=== PATIENT | female | born 1990 | race Caucasian/White ===

== ENCOUNTER 2022-11-20 16:13 | Emergency (ER) | payer OTHER, SELFPAY ==
[2022-11-20 16:53] VITALS: BP 121/80; PULSE 88; RESP 16; TEMP 36.7; O2SAT 98; BMI 44.6
[2022-11-20] MEDS: Ibuprofen 600 MG TABLET PO (20:31)
--- NOTE | 2022-11-20 23:11 | ED.BACK ---
HPI - Back Pain/Injury General Chief Complaint: Back Pain/Injury Stated Complaint: severe back and leg pain Time Seen by Provider: 11/20/22 23:10 Source: patient Mode of arrival: ambulatory Limitations: no limitations History of Present Illness HPI Narrative: This is a 32-year-old female history of sciatica presenting to the emergency department with left lower back pain in the lumbar region that radiates down the left leg just above the left knee, patient tells me that she has a known history of sciatica, this feels like her typical sciatica however the pain is intolerable. Patient reports that pain is worse with movement better at rest. She tells me she was recently placed on a Medrol pack which she recently completed 1.5 weeks ago with little to no relief. She got a referral from her primary care provider to see a senior education specialist due to recurrent episodes of this. PCP did xrays which were normal. Patient denies IV drug abuse, fevers, chills, numbness, tingling, fevers, chills, saddle paresthesias, urine/bowel incontinence/retention, weakness, chest pain, shortness of breath, nausea, vomitin, abd pain. Denies blunt trauma to back. Feels like her typical sciatica however not improving. Has taken ibuprofen and Tylenol a home. (amulatory into room) Related Data Previous Rx's Medication Instructions Recorded lidocaine 5 % topical patch 1 patch topical DAILY PRN pain #15 11/20/22 ea morphine 15 mg immediate release 15 mg PO BID PRN pain #8 tabs 11/20/22 tablet Allergies Allergy/AdvReac Type Severity Reaction Status Date / Time No Known Allergies Allergy Verified 11/20/22 16:54 Review of Systems Review of Systems: Constitutional : No Weight loss, No Fever, No Chills, ENT/Mouth : No Hearing loss, No Ear Pain, No Nasal Congestion, No Sinus Pain, No Hoarseness, No sore throat, No Rhinorrhea, No Swallowing Difficulty Cardiovascular : No Chest Pain, No SOB Respiratory : No Cough, No Dyspnea Gastrointestinal : No Nausea, No Vomiting, No Diarrhea, No abdominal Pain, No Hematochezia, No Melena Genitourinary : No Dysuria, No Urinary Frequency, No Hematuria, No Urinary Incontinence, Musculoskeletal : positive back pain Skin : No Skin Lesions, No rash Neuro : No Weakness, No Numbness, No Paresthesias, no loss of bowel or bladder incontinence, no saddle anesthesia Yes all other systems are reviewed and are negative [facility] Past Medical History Attestation statement: The following information was validated with the patient. Source: old records reviewed and nursing notes reviewed Social History Social History Advance Directives: No Advance Directives Information Provided: No Physical Exam Vital Signs: Vital Signs: Last Vital Signs Temp 98.1 F 11/20/22 16:53 Pulse 88 11/20/22 16:53 Resp 16 11/20/22 16:53 BP 121/80 11/20/22 16:53 Pulse Ox 98 11/20/22 16:53 O2 Del Method 11/20/22 16:53 BMI result Body Mass Index 44.6 Vital signs stable Appearance: Alert.? Oriented X3.? No acute distress.? Head: Normocephalic, atraumatic, no step-offs or deformities Eyes: Pupils equal, round and reactive to light.? CVS: Normal heart rate and rhythm.? Pulses normal.? Respiratory: No respiratory distress.? Breath sounds normal.? Abdomen: Soft and nontender.? Skin: Skin warm and dry.? Normal skin color.? Normal skin turgor.? Extremities: No lower extremity edema.? No calf ttp. 5/5 strength to bilateral upper and lower extremities 2+ DTRs equal bilateral. To patellar region. Back: No midline tenderness, no C-spine tenderness, full range of motion, no CVA tenderness bilaterally+ pain with palpation of left lumbar paraspinous muscles in the lower region. Neuro: Oriented X 3.? No motor deficit.? No sensory deficit. CN 2-12 intact . Ambulating with steady gait normal coordination. No saddle paresthesias. Course Reevaluation(s) Reevaluation #1: Discussed this case with my attending as patient is in a lot of pain will give 15 mg of p.o. morphine and 30 mg of IM Toradol. Patient will likely benefit from MRI of lumbar spine. Advised patient to return with new or worsening symptoms. Likely diagnosis sciatica. Educated patient on diagnosis and treatment plan, answered all question, patient verbalizes understanding. At this time patient will be discharged home, advised to return with new or worsening symptoms. Educated on worrisome signs and symptoms and when to return. At this time I feel comfortable discharge home. Time: 23:59 Medications Administered Discontinued Medications Generic Name Dose Route Start Last Admin Trade Name Omero PRN Reason Stop Dose Admin Ibuprofen 600 mg 11/20/22 20:14 11/20/22 20:31 Ibuprofen 600 Mg Tablet PO 11/20/22 20:15 600 mg ONCE ONE Administration Lidocaine 1 patch 11/20/22 23:16 11/20/22 23:24 Lidocaine 4 % Patch Adh..Patch TRANSDERMA 11/20/22 23:17 1 patch ONCE ONE Administration Protocol Morphine Sulfate 15 mg 11/20/22 23:16 11/20/22 23:24 Morphine Sulfate Immed Release 15 Mg Tablet PO 11/20/22 23:17 15 mg ONCE ONE Administration Medical Decision Making Medical Decision Making [facility] Narrative: 1115 32-year-old female presents with atraumatic left lower back pain that radiates down her left buttocks down to her leg just above the knee, known history of sciatica waiting to see a senior education specialist. Pain not going away despite Medrol pack Physical exam with left lumbar paraspinous tenderness on palpation. No saddle paresthesias. Neuro nonfocal. Ambulating with steady gait. Likely sciatica. Unlikely cauda equina, epidural abscess. No signs of cord compression on exam. Plan at this time is morphine, Lidoderm patch. Pain atraumatic no need for imaging at this time. Critical Care Time Critical Care Time Critical Care Time: No Discharge Plan Discharge Clinical Impression: Sciatica Patient Disposition: Home, Self-Care Instructions: Sciatica (ED), Back Pain (ED), Lower Back Exercises (ED) Additional Instructions: Take your medications as prescribed. If you were prescribed antibiotics today, it is important that you take your medication to their entirety, do not skip any doses, do not finish them early. Follow-up with your primary care provider this week. Return to the emergency department with new or worsening symptoms. Such as fevers, chills, chest pain, shortness of breath, nausea, vomiting, dizziness, headache, vision changes, lethargy In case of emergency call 911 Please follow-up with [facility], you will likely require an MRI to further evaluate this. Information below Prescriptions: New lidocaine 5 % adhesive patch,medicated 1 patch topical DAILY PRN (Reason: pain) Qty: 15 0RF Rx Instructions: leave on most painful area for up to 12 hrs morphine 15 mg tablet 15 mg PO BID PRN (Reason: pain) Qty: 8 0RF Rx Instructions: Partial Fill upon patient request. Referrals: [facility] [Provider Group] - 2 days Toby Thurman MD [Primary Care Provider] - 2 days Stand Alone Forms: Work/School Release
[2022-11-20] MEDS: Morphine Sulfate Immed Release 15 MG TABLET PO (23:24)
[2022-11-20] MEDS: Lidocaine 4 % Patch ADH..PATCH 1 PATCH TRANSDERMA (23:24)
[2022-11-21] MEDS: Ketorolac Tromethamine 15 MG/ML VIAL 30 MG IM (00:09)
== END 2022-11-21 00:15 | disposition home or self-care (01) ==
PROVIDERS: Emergency Provider Internal Medicine; PCP Internal Medicine
DX: M54.42 Lumbago with sciatica, left side (principal)
CPT/HCPCS: 96372; 99283; 99284; J1885

== ENCOUNTER → 2023-10-14 07:47 | Outpatient (BNVA) | payer OTHER, SELFPAY | PROVIDERS: PCP Internal Medicine; Visit Provider Physician Assistant ==

== ENCOUNTER 2023-10-21 07:52 | Outpatient (AMB) | payer OTHER, SELFPAY ==
[2023-10-20 19:41] VITALS: BMI 45.0
--- NOTE | 2023-10-20 19:41 | A.OFFVIS_ITS ---
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 BMI 45.0 HPI Details Start time: 8.00am, End time: 8.48am ?I spent 43 minutes speaking with the patient on the phone plus an additional 5 minutes reviewing and updating records for a total of 48 minutes HPI Comments History of Present Illness Details Previous weight loss efforts: Counting calories (Loose it, My Fitness pal), Weight Watchers on several occasions Wakes up: 6.15am, Sleeps: 10pm Breakfast: skips Lunch: 11.30am (sandwich, protein with potatoes) Dinner: 5.30pm (protein, vegetable and potato) Snacks: 1-2pm (chips), 7-8pm (ice cream, candy) Exercise: none (has bike) Fluids: Coffee: 2 cups/day (cream), tea: none, soda: diet coke, juice: none, ETOH: none PFSH Medical History (Updated 10/21/23 @ 08:11 by Refugio Ambrose MD) Herpes simplex GERD (gastroesophageal reflux disease) Anxiety Depression Morbid obesity Surgical History (Updated 10/14/23 @ 10:48 by Gerda Serrato CMA) Hx of discectomy Hx of ovarian cystectomy Hx of wisdom tooth extraction Social History (Updated 10/14/23 @ 10:48 by Gerda Serrato CMA) Alcohol intake: current Alcohol intake frequency: holidays/special occasions only Alcohol type: beer Patient Tobacco Use Status: Never used Tobacco Physical Exam Vital Signs: BMI result Body Mass Index 45.0 Assessment & Plan Assessment & Plan (1) Morbid obesity: Code(s): E66.01 - Morbid (severe) obesity due to excess calories Plan: 1.? Plan for lap sleeve gastrectomy. If diaphragmatic or ventral hernias are present at time of surgery, these will be repaired laparoscopically as well. Risks and complications were discussed in detail including possible conversion to an open procedure, anastomotic leak, bleeding requiring transfusion, small bowel obstruction, , DVT and pulmonary embolism, cardiac, or pulmonary complications, as terminal operator complications such as anastomotic ulcer, insufficient weight loss and vitamin deficiencies. I emphasized the importance of close follow-up, adherence to instructions and good communication. 2. Nutritional counseling. Start with 2 CELEBRATE REBUILD protein (buy at [facility] [employer]) shakes (ONE scoop EACH in 8oz low fat unsweetened almond milk each) at 7am-9am and 10am-12pm, 2 protein bars (CELEBRATE protein bars, buy at [facility] [employer]) at 1pm-3pm and 4pm-6pm, dinner at 7pm (10 forks of protein and 10 forks of salad/vegetables) AND HALF more protein bar (If needed) after dinner at 9pm-10pm. So you do 2 protein shakes, 2 to 2.5 protein bars and one meal per day. Meal to include lean meat (beef, fish, pork, turkey, chicken), or brazilian yogurt, or egg whites, or beans with a salad with olive oil and fruits (berries, pears, apples, kiwi). Avoid salt, breads, potatoes, rice, pasta, desserts. 3. Each shake would be drunk slowly, like coffee in a period of 2 hours. May add your coffee into your shakes, if flavor match. 4. Cut each bar in 4 pieces and eat each piece in 30min ?to make each bar last 2 hours. 5. I emphasized the importance of measuring accurately the food portion and measure it when serving the food in plate 6. The meal portions include 10 full-size forks of meat and 10 full-size forks of salad. You always eat the meat portion but you can replace up to 5 forks for salad/vegetables with rice, potatoes or pasta, or a fruit ?if you like. The less you do it the better weight loss will be. 7. One full-size fork is what it can be scooped on the fork without falling aside and not what can be bit with the fork. Use regular forks like those you find in a typical restaurant. 8.? Please send me weight measurements as soon as possible and then once a week. Always include your diet and exercise plan. 10. Alternatively start stationary bike at a resistance level of 4.0 Increase level by 1.0 every 3 min to a max level of 10.0. Stay at this level for 3 min and then return to level 4.0 and repeat same steps until 300 calories are burned. Velocity target is 12mph and heart rate is 145 bpm. Goal is to burn 2000 calories per week on exercise, which means either 300 calories daily, or 400 calories 5 days per week, or 500 calories 4 days per week, or 650 calories 3 days per week. 11.?It is important of avoiding and for at least 18 months postoperatively and has been discussed at the infosession. 12. Goal is to lose at least 1.5-2lbs per week 13. Goal to lose 10% of your weight before surgery, which is about 26lbs. Ultimate weight goal: 236lbs before surgery 14. Please follow the diet plan exactly without any change. If you don't like something about the plan or you feel hungry you need to communicate with me so I can help you revise the plan. You should not change the plan yourself. (2) GERD (gastroesophageal reflux disease): Code(s): K21.9 - Gastro-esophageal reflux disease without esophagitis Orders: Orders Insulin 10/20/23 E66.01 - Morbid (severe) obesity due to excess calories IRON PROFILE 10/20/23 E66.01 - Morbid (severe) obesity due to excess calories Vitamin B12 and Folate 10/20/23 E66.01 - Morbid (severe) obesity due to excess calories Zinc 10/20/23 E66.01 - Morbid (severe) obesity due to excess calories Comprehensive Met. Panel 10/20/23 E66.01 - Morbid (severe) obesity due to excess calories Vitamin B1 10/20/23 E66.01 - Morbid (severe) obesity due to excess calories Vitamin A 10/20/23 E66.01 - Morbid (severe) obesity due to excess calories C Reactive Protein 10/20/23 E66.01 - Morbid (severe) obesity due to excess calories PTHI 10/20/23 E66.01 - Morbid (severe) obesity due to excess calories Vitamin D 25-OH Total 10/20/23 E66.01 - Morbid (severe) obesity due to excess calories Hemoglobin A1c 10/20/23 E66.01 - Morbid (severe) obesity due to excess calories US abdomen comp w elastography 10/20/23 E66.01 - Morbid (severe) obesity due to excess calories ECG 12 lead EKG 10/20/23 E66.01 - Morbid (severe) obesity due to excess calories FL upper GI w air 10/20/23 E66.01 - Morbid (severe) obesity due to excess calories Lipid Panel 10/20/23 E66.01 - Morbid (severe) obesity due to excess calories Complete Blood Count Auto Diff 10/20/23 E66.01 - Morbid (severe) obesity due to excess calories Ferritin 10/20/23 E66.01 - Morbid (severe) obesity due to excess calories TSH reflex Free T4 10/20/23 E66.01 - Morbid (severe) obesity due to excess calories H Pylori Breath Test 10/20/23 E66.01 - Morbid (severe) obesity due to excess calories XR chest 2V 10/20/23 E66.01 - Morbid (severe) obesity due to excess calories Referrals Behavioral Health Referral E66.01 - Morbid (severe) obesity due to excess calor ies Nutrition/Dietitian Referral E66.01 - Morbid (severe) obesity due to excess calories Telehealth Telehealth Location of provider rendering services: practice address Location of patient: address on file Patient Identification confirmed using: Name, : Yes Telehealth method: voice only Patient verbally consented to treatment: Yes Patient verbally consented to billing insurance company: Yes Patient informed of any privacy concerns related to visit: Yes Minutes spent on Phone/Video with Pt.: 48 Coding Level of Care Code Tele New Pt Level 4 (84357) Diagnoses Morbid obesity E66.01 GERD (gastroesophageal reflux disease) K21.9 Time Spent (min) 48
== END 2023-10-21 08:49 | disposition home or self-care (01) ==
LOC: HO.HBS 07:52
PROVIDERS: PCP Internal Medicine; Visit Provider Surgery
DX: E66.01 Morbid (severe) obesity due to excess calories (principal); Z68.42 Body mass index [BMI] 45.0-49.9, adult
CPT/HCPCS: 99204; 99443

== ENCOUNTER → 2023-10-21 07:52 | Outpatient (REF) | payer OTHER, SELFPAY ==
--- NOTE | ~2023-10-21 | XR_ITS ---
EXAMINATION: XR CHEST CLINICAL INFORMATION: Reason for Exam E66.01 - Morbid (severe) obesity due to excess calories COMPARISON: None TECHNIQUE: 2 views of the chest FINDINGS: Lines and tubes: None. Clear lungs. No pleural effusion. No pneumothorax. Normal cardiomediastinal silhouette. 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 XR/XR chest 2V IMPRESSION: 1. Clear lungs. 2. 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
--- NOTE | 2023-10-21 11:54 | ECG_ITS ---
Test Reason : E66.01 Blood Pressure : / mmHG Vent. Rate : 068 BPM Atrial Rate : 068 BPM P-R Int : 144 ms QRS Dur : 080 ms QT Int : 392 ms P-R-T Axes : 039 022 004 degrees QTc Int : 416 ms Normal sinus rhythm Nonspecific T wave abnormality Abnormal ECG No previous ECGs available Referred By: Refugio Ambrose Electronically Signed By:TITUS CHINCHILLA MD
== END ==
LOC: HO.CARD 07:52
PROVIDERS: PCP Internal Medicine; Visit Provider Surgery
DX: E66.01 Morbid (severe) obesity due to excess calories (principal); K21.9 Gastro-esophageal reflux disease without esophagitis
CPT/HCPCS: 71046; 93005

== ENCOUNTER 2023-10-22 07:10 | Outpatient (REF) | payer OTHER, SELFPAY ==
[2023-10-22 07:29] LABS: MANUAL DIFF FLAG NO
[2023-10-22 07:34] LABS: Basophils Absolute Auto 0.1 X10*3/uL (0.0-0.2); Basophils Percent Auto 0.5 % (0-2); Eosinophils Absolute Auto 0.1 X10*3/uL (0.0-0.4); Eosinophils Percent Auto 0.9 % (0-4); Hematocrit 38.4 % (37.0-47.0); Hemoglobin 12.5 g/dl (12.0-16.0); Imm Gran Abs Auto 0.03 X10*3/uL (0.00-0.03); Imm Gran Pct Auto 0.3 % (0.0-0.4); Lymphocytes Absolute Auto 2.2 X10*3/uL (1.2-4.9); Lymphocytes Percent Auto 24.2 % (20-40); Mean Corpuscular HGB Conc 32.6 g/dl (31.0-35.0); Mean Corpuscular Hemoglobin 28.6 pg (27.0-33.0); Mean Corpuscular Volume 87.9 fL (80.0-98.0); Mean Platelet Volume 8.8 fL (9.4-12.3); Monocytes Absolute Auto 0.6 X10*3/uL (0.1-1.2); Monocytes Percent Auto 6.2 % (2-11); Neutrophils Absolute Auto 6.2 x10*3/uL (2.0-8.3); Neutrophils Percent Auto 67.9 % (45-73); Platelet Count 348 X10*3/uL (160-400); Red Blood Count 4.37 X10*6/uL (4.20-5.50); Red Cell Distribution Width 13.9 % (11.0-16.0); White Blood Count 9.1 X10*3/uL (4.8-10.8)
[2023-10-22 07:41] LABS: Estimated Average Glucose 111 mg/dL; Hemoglobin A1c % 5.5 % (<6.0)
[2023-10-22 07:54] LABS: Alanine Aminotransferase 16 U/L (0-31); Albumin Level 4.2 g/dL (3.5-5.0); Alkaline Phosphatase 88 U/L (39-117); Anion Gap 10 (12-20); Aspartate Amino Transferase 14 U/L (5-31); Bilirubin Total 0.6 mg/dL (0.0-1.0); Blood Urea Nitrogen 13 mg/dL (9-16); Calcium 9.1 mg/dL (8.4-10.2); Carbon Dioxide 26 mmol/L (22-29); Chloride 107 mmol/L (96-108); Cholesterol 184 mg/dL (<200); Estimated Glomerular Filt Rate > 60; Glucose Random 113 mg/dL (60-115); HDL Cholesterol 49 mg/dL (>40); Iron 49 mcg/dL (30-160); LDL Cholesterol Calculated 119 mg/dL (<100); Percent Iron Saturation 16 % (15-50); Potassium 4.4 mmol/L (3.3-5.1); Sodium 139 mmol/L (135-145); Total Iron Binding Capacity 303 mcg/dL (228-428); Total Protein 7.3 g/dL (6.5-8.0); Triglycerides 80 mg/dL (<150); Unsaturated Iron Binding 254 ug/dL
[2023-10-22 08:16] LABS: Ferritin 33 ng/mL (10-122); TSH reflex Free T4 0.95 uIU/mL (0.32-4.0); Vitamin D 25-OH Total 42.1 ng/mL (>30)
[2023-10-22 08:24] LABS: Folate 6.7 ng/mL (> or = 4.0); Vitamin B12 497 pg/mL (200-900)
[2023-10-22 08:28] LABS: Insulin 22 uU/mL (2-29)
[2023-10-23 15:54] LABS: Calcium (PTHI) 9.1 mg/dL (8.6-10.2); PTHI 43 pg/mL (16-77)
[2023-10-26 14:52] LABS: Zinc 82 mcg/dL (60-130)
[2023-10-27 07:09] LABS: Vitamin B1 8 nmol/L (8-30)
[2023-10-28 10:28] LABS: Vitamin A 40 mcg/dL (38-98)
== END 2023-10-22 07:11 | disposition home or self-care (01) ==
LOC: HO.LAB 07:10
PROVIDERS: PCP Internal Medicine; Visit Provider Surgery
DX: E66.01 Morbid (severe) obesity due to excess calories (principal)
CPT/HCPCS: 36415; 80053; 80061; 82306; 82607; 82728; 82746; 83036; 83525; 83540; 83970; 84425; 84443; 84590; 84630; 85025; 86140

== ENCOUNTER 2023-11-04 08:09 | Outpatient (AMB) | payer OTHER, SELFPAY ==
--- NOTE | 2023-11-04 08:14 | MHC.OFFVISWM ---
Intake VS Expanded 11/04/23 08:24 Height 5 ft 4 in Weight 256 lb 6 oz BMI 44.0 Body Fat % 58.1 Body Fat Mass 149 Fat Free Mass 107.6 Visceral Fat Rating 25 Body Water % 28.7 Body Water Mass 73.6 Basal Metabolic Rate/Score 1,417 Intake Visit Reasons: TV Follow Up SWL - 1ST Allergies No Known Allergies Allergy (Verified 10/21/23 08:06) HPI TV Follow Up SWL - 1ST HPI Details Start time: 8.10am, End time: 8.31am ?I spent 16 minutes speaking with the patient on the phone plus an additional 5 minutes reviewing and updating records for a total of 21 minutes HPI Comments History of Present Illness Details Overall weight loss: 5.6lbs or 2.14% TBWL Is doing 2 Celebrate Rebuild protein shakes (1 scoop in 8oz almond milk), 2 Celebrate protein bars and a meal (10 forks of protein and 10 forks of salad or vegetables) Exercise: doing the stationary bike at home for 300 calories 2-3 days or Gym doing treadmill for 300 PFSH Medical History (Updated 10/29/23 @ 18:36 by Refugio Ambrose MD) Herpes simplex GERD (gastroesophageal reflux disease) Anxiety Depression Morbid obesity Surgical History (Updated 10/14/23 @ 10:48 by Gerda Serrato CMA) Hx of discectomy Hx of ovarian cystectomy Hx of wisdom tooth extraction Social History (Updated 10/14/23 @ 10:48 by Gerda Serrato CMA) Alcohol intake: current Alcohol intake frequency: holidays/special occasions only Alcohol type: beer Patient Tobacco Use Status: Never used Tobacco Assessment & Plan Assessment & Plan (1) Morbid obesity: Code(s): E66.01 - Morbid (severe) obesity due to excess calories Plan: 1. Continue same nutritional plan of 2 Celebrate Rebuild protein shakes (1 scoop in 8oz almond milk), 2 Celebrate protein bars and a meal (10 forks of protein and 10 forks of salad or vegetables) 2. Try the Zone Perfect protein bars and see if you like them better than the Celebrate bars 3. Exercise: continue stationary bike at home for 300 calories 2-3 days per week. 4. Start treadmill with an incline of 2.0 and speed of 3.0. Increase incline by 1 every 3 min to a max incline of 8.0, stay 3min at 8.0 and then return to 2.0 and repeat same steps until calorie goal is met. Goal is to burn 2000 calories per week on exercise, which means either 300 calories daily, or 400 calories 5 days per week, or 500 calories 4 days per week, or 650 calories 3 days per week. 5. Continue to send me weight measurements weekly on Tuesdays Telehealth Telehealth Location of provider rendering services: practice address Location of patient: address on file Patient Identification confirmed using: Name, : Yes Telehealth method: voice only Patient verbally consented to treatment: Yes Patient verbally consented to billing insurance company: Yes Patient informed of any privacy concerns related to visit: Yes Minutes spent on Phone/Video with Pt.: 21 Coding Level of Care Code Tele Est Pt Level 3 (37200) Diagnoses Morbid obesity E66.01 Time Spent (min) 21
[2023-11-04 08:24] VITALS: BMI 44.0
== END 2023-11-04 08:32 | disposition home or self-care (01) ==
LOC: HO.HBS 08:09
PROVIDERS: PCP Internal Medicine; Visit Provider Surgery
DX: E66.01 Morbid (severe) obesity due to excess calories (principal); Z68.41 Body mass index [BMI] 40.0-44.9, adult
CPT/HCPCS: 99443

== ENCOUNTER → 2023-11-04 08:09 | Outpatient (BNVA) | payer OTHER, SELFPAY | PROVIDERS: PCP Internal Medicine; Visit Provider Surgery ==

== ENCOUNTER 2023-11-08 09:36 | Outpatient (AMB) | payer OTHER, SELFPAY ==
--- NOTE | 2023-11-08 09:26 | MHC.AMNUTRGE ---
Intake VS Expanded 11/08/23 09:34 Height 5 ft 4 in Weight 251 lb BMI 43.1 Intake Visit Reasons: VIDEO Initial Nutrition SWL Allergies No Known Allergies Allergy (Verified 10/21/23 08:06) HPI Nutrition Presentation Reason for consult elevated BMI Diet Assmnt Details pt reports she enjoys the nutrition plan, is very consistent. she has no concerns or questions Exercise: has a stationary bike and a treadmill at home, has a gym membership ; 4x per week some form of cardio SWLclasses: 05/09 , reviewed and answered all questions Previous weight loss methods attempted WW, calorie counting, various self diets. would yo-yo in her weight Dietary counseling reduction Who buys your food self Who prepares/cooks your food self Meal frequency regular: breakfast, lunch, dinner and snacks (evening snacking) Lifestyle Food frequency Fruit: daily, Vegetables: daily, Grains/pasta/breads/cereal (carbs): daily, Meats/poultry/fish (protein): daily, Meat substitutes/nuts/seeds/legumes: daily, Processed foods/meats: daily, Desserts/sweets: daily, Water: daily, Soda: daily (diet), Juice: never and Coffee: daily (3-4c daily ) Diagnosis Nutrition problem #1 overweight/obesity As related to (etiology) #1 excess energy intake and physical inactivity As evidenced by (sign/symptom) #1 high BMI Monitoring/Goals Nutrition problem monitoring total energy intake, level of knowledge/skill, total PRO intake, total CHO intake and weight Outcome progress progressing Learning/Education Readiness to learn excellent Stages of change action Educational materials provided Yes Most Recent Diabetes Results: Cholesterol 184 mg/dL (<200) 10/22/23 HDL Cholesterol 49 mg/dL (>40) 10/22/23 Triglycerides 80 mg/dL (<150) 10/22/23 Creatinine 0.71 mg/dL (0.5-1.4) 10/22/23 Blood Urea Nitrogen 13 mg/dL (9-16) 10/22/23 Sodium 139 mmol/L (135-145) 10/22/23 Potassium 4.4 mmol/L (3.3-5.1) 10/22/23 Chloride 107 mmol/L (96-108) 10/22/23 Carbon Dioxide 26 mmol/L (22-29) 10/22/23 Calcium 9.1 mg/dL (8.4-10.2) 10/22/23 AST 14 U/L (5-31) 10/22/23 ALT 16 U/L (0-31) 10/22/23 Total Protein 7.3 g/dL (6.5-8.0) 10/22/23 Albumin 4.2 g/dL (3.5-5.0) 10/22/23 PFSH Medical History (Updated 10/29/23 @ 18:36 by Refugio Ambrose MD) Herpes simplex GERD (gastroesophageal reflux disease) Anxiety Depression Morbid obesity Surgical History (Updated 10/14/23 @ 10:48 by Gerda Serrato CMA) Hx of discectomy Hx of ovarian cystectomy Hx of wisdom tooth extraction Social History (Updated 10/14/23 @ 10:48 by Gerda Serrato CMA) Alcohol intake: current Alcohol intake frequency: holidays/special occasions only Alcohol type: beer Patient Tobacco Use Status: Never used Tobacco Assessment & Plan Assessment & Plan (1) Morbid obesity: Code(s): E66.01 - Morbid (severe) obesity due to excess calories Plan Patient is cleared Patient Instructions: Patient is cleared from a nutrition standpoint for bariatric surgery. Educational requirements have been completed. Reviewed vitamin supplementation and commitment to protein shake for several months post surgery. Encouraged communication with office as needed Telehealth Telehealth Location of provider rendering services: practice address Location of patient: address on file Patient Identification confirmed using: Name, : Yes Telehealth method: video Patient verbally consented to treatment: Yes Patient verbally consented to billing insurance company: Yes Patient informed of any privacy concerns related to visit: Yes Minutes spent on Phone/Video with Pt.: 20 Coding Level of Care Code Nutr Indiv Intake (32160) Diagnoses Morbid obesity E66.01 Time Spent (min) 20
[2023-11-08 09:34] VITALS: BMI 43.1
== END 2023-11-08 09:48 | disposition home or self-care (01) ==
LOC: HO.HBS 09:36
PROVIDERS: PCP Internal Medicine; Visit Provider Dietitian, Registered
DX: E66.01 Morbid (severe) obesity due to excess calories (principal)

== ENCOUNTER → 2023-11-08 09:36 | Outpatient (BNVA) | payer OTHER, SELFPAY | PROVIDERS: PCP Internal Medicine; Visit Provider Dietitian, Registered | DX: E66.01 Morbid (severe) obesity due to excess calories (principal); Z68.41 Body mass index [BMI] 40.0-44.9, adult; Z71.3 Dietary counseling and surveillance | CPT/HCPCS: 97802 ==

== ENCOUNTER → 2023-11-11 07:47 | Outpatient (REF) | payer OTHER, SELFPAY ==
--- NOTE | 2023-11-11 07:49 | CA_ITS ---
Acquisition Time: 2023-11-11 08:07:08 Total Exercise Time: 00:06:11 Test Indications: Abnormal ECG Medications: PAROXETINE Protocol: MEGHAN Max HR: 171 BPM 91% of Pred: 187 BPM Max BP: 128/074 mmHG Max Work Load: 7.2 METS Exercise stress test exercise 6 min 11 sec of Meghan protocol achieving 91% MPHR, without anginal symptoms, without arrhythmias, with normotensive response to exercise, with downsloping in leads V4-V6, t wave inversion lead 2 during exercise and scooping in recovery in leads 2 and aVF. Test reviewed with Dr. Yu. MSG sent to ordering provider to order nuclear stress test if further testing is required Referred By: Refugio Ambrose Overread By: Radha Rea
== END ==
LOC: HO.CARD 07:47
PROVIDERS: Visit Provider Surgery
DX: R94.31 Abnormal electrocardiogram [ECG] [EKG] (principal)
CPT/HCPCS: 93017

== ENCOUNTER → 2023-11-11 07:49 | Outpatient (BNV) | payer OTHER, SELFPAY | PROVIDERS: Visit Provider Nurse Practitioner | DX: R94.31 Abnormal electrocardiogram [ECG] [EKG] (principal) | CPT/HCPCS: 93016; 93018 ==

== ENCOUNTER 2023-11-13 06:25 | Day surgery (SDC) | payer OTHER, SELFPAY ==
--- NOTE | 2023-11-09 12:21 | P.HPSUR_ITS ---
Pre-Procedural Eval Section A Date of Service: 11/09/23 The patient is an INPATIENT: No The History & Physical has been completed within 30 days and I have reviewed it.: Yes Section B Chief Complaint: Morbid (severe) obesity due to excess calories Details of Present Illness: GERD Relevant Family History (Specify if Yes): No Relevant Social History: None Present Medications: None Medical History: No relevant PMH History of Previous Operations: No relevant previous surgery Allergies: Allergies Allergy/AdvReac Type Severity Reaction Status Date / Time No Known Allergies Allergy Verified 10/21/23 08:06 Review of Systems Sugical H&P ROS: Negative: Constitution, Cardiovascular, Respiratory, Neurological, Psychiatric, Hem-Onc, Allergic/Immunologic, Gastrointestinal, Genitourinary, Musculoskeletal, Integumentary, Endocrine and Eyes/Ears/Nose/Throat Exam Surgical H&P Exam: Normal: HEENT, Normal: Heart, Normal: Lungs, Normal: Extremit ies, Normal: Abdomen, Normal: Skin and Normal: Neurological Plan Diagnosis/Plan: Unchanged (EGD to assess for esophagitis. Risks for perforation and bleeding were discussed with patient. She is in agreement with the plan) I have reviewed the history and physical and performed a pertinent physical examination on my patient. No changes have occurred unless specified. Time Spent With Patient Time: Total time managing care of this patient today ____ minutes.
[2023-11-11 13:57] VITALS: BMI 44.0
[2023-11-13 07:07] VITALS: BMI 43.9
[2023-11-13 07:09] VITALS: BP 129/76; PULSE 73; RESP 16; TEMP 36.6; O2SAT 97
[2023-11-13 07:15] LABS: UPreg QC Valid YES; Urine Pregnancy NEGATIVE (NEGATIVE)
--- NOTE | 2023-11-13 07:20 | P.CONAN_ITS ---
Documented by User: Thelma Herrera NP 11/12/23 10:23 HPI - Anesthesia Eval Consult details Narrative: 33yo F for Upper Endoscopy Pt with non specific T wave on EKG so sent for stress. Exercise stress with some EKG abnormalities up to 7 mets. Nuc Stress pending. Pt without cardiac symptoms during 45 minute cardio exercise. OK for EGD. Nuc Stress prior to sleeve. Reviewed with Dr Mendez and Kelley at bariatrics notified. PMFSH Active Problems Active Problems: All Active Problems (Updated 10/29/23 @ 18:36 by Refugio Ambrose MD) Abnormal EKG (Acute) Herpes simplex (Acute) GERD (gastroesophageal reflux disease) (Acute) Anxiety (Acute) Depression (Acute) Morbid obesity (Acute) Past Medical History Medical History (Updated 11/13/23 @ 07:16 by Lorna De La Rosa RN) Factor 5 Leiden mutation, heterozygous Herpes simplex GERD (gastroesophageal reflux disease) Anxiety Depression Morbid obesity Surgical History Surgical History (Updated 10/14/23 @ 10:48 by Gerda Serrato CMA) Hx of discectomy Hx of ovarian cystectomy Hx of wisdom tooth extraction Social History Social History (Updated 10/14/23 @ 10:48 by Gerda Serrato CMA) Alcohol intake: current Alcohol intake frequency: holidays/special occasions only Alcohol type: beer Patient Tobacco Use Status: Former Tobacco user Quit Date: 10 YRS AGO Use of substances other than those prescribed or required for medical reasons: Yes Are you DNR?: No Advance Directives: No Advance Directives Information Provided: Yes Meds Allergies Allergy/AdvReac Type Severity Reaction Status Date / Time No Known Allergies Allergy Verified 11/13/23 07:17 Home Medications Medication Instructions Recorded Confirmed Last Taken Type acyclovir 5 % topical ointment 1 appl topical 6XD 10/21/23 10/21/23 Unknown History ibuprofen 200 mg tablet 200 mg PO Q6H PRN 10/21/23 10/21/23 Unknown History paroxetine HCl 10 mg tablet (Paxil) 10 mg PO DAILY 10/21/23 10/21/23 Unknown History Exam Height,Weight and Vital Signs: Height 5 ft 4 in Weight 116.29 kg Pertinent Lab Results Pertinent Lab Results: Laboratory Tests 10/22/23 07:27 WBC 9.1 Hgb 12.5 Hct 38.4 Plt Count 348 Sodium 139 Potassium 4.4 Chloride 107 Carbon Dioxide 26 BUN 13 Creatinine 0.71 Narrative Narrative: EKG 10/2023 Vent. Rate : 068 BPM Atrial Rate : 068 BPM P-R Int : 144 ms QRS Dur : 080 ms QT Int : 392 ms P-R-T Axes : 039 022 004 degrees QTc Int : 416 ms Normal sinus rhythm Nonspecific T wave abnormality Abnormal ECG No previous ECGs available Exercise Stress 11/2023 Protocol: GARRICK Max HR: 171 BPM 91% of Pred: 187 BPM Max BP: 128/074 mmHG Max Work Load: 7.2 METS Exercise stress test exercise 6 min 11 sec of Garrick protocol achieving 91% MPHR, without anginal symptoms, without arrhythmias, with normotensive response to exercise, with downsloping in leads V4-V6, t wave inversion lead 2 during exercise and scooping in recovery in leads 2 and aVF. Test reviewed with Dr. Yu. MSG sent to ordering provider to order nuclear stress test if further testing is required Assessment and Plan Assessment Anesthesia Assessment: Chart Reviewed Documented by User: Laurel Dennis DO 11/13/23 07:23 [facility] Past Medical History Medical History (Updated 11/13/23 @ 07:16 by Lorna De La Rosa RN) Factor 5 Leiden mutation, heterozygous Herpes simplex GERD (gastroesophageal reflux disease) Anxiety Depression Morbid obesity Family History Family history of problems with anesthesia: No Surgical History Surgical History (Updated 10/14/23 @ 10:48 by Gerda Serrato CMA) Hx of discectomy Hx of ovarian cystectomy Hx of wisdom tooth extraction History of Problems with Anesthesia: No Social History Social History (Updated 10/14/23 @ 10:48 by Gerda Serrato CMA) Alcohol intake: current Alcohol intake frequency: holidays/special occasions only Alcohol type: beer Patient Tobacco Use Status: Former Tobacco user Quit Date: 10 YRS AGO Use of substances other than those prescribed or required for medical reasons: Yes Are you DNR?: No Advance Directives: No Advance Directives Information Provided: Yes Meds Allergies Allergy/AdvReac Type Severity Reaction Status Date / Time No Known Allergies Allergy Verified 11/13/23 07:17 Home Medications Medication Instructions Recorded Confirmed Last Taken Type acyclovir 5 % topical ointment 1 appl topical 6XD 10/21/23 10/21/23 Unknown History ibuprofen 200 mg tablet 200 mg PO Q6H PRN 10/21/23 10/21/23 Unknown History paroxetine HCl 10 mg tablet (Paxil) 10 mg PO DAILY 10/21/23 10/21/23 Unknown History Exam Exam Date and Time: November 13, 2023 0720 Height,Weight and Vital Signs: Height 5 ft 4 in Weight 116.29 kg Vital Signs Temperature 97.9 F 11/13/23 07:09 Pulse Rate 73 11/13/23 07:09 Respiratory Rate 16 11/13/23 07:09 Blood Pressure 129/76 11/13/23 07:09 Pulse Oximetry 97 11/13/23 07:09 Oxygen Delivery Method Room Air 11/13/23 07:09 Temperature 97.9 F 11/13/23 07:09 Pulse Rate 73 11/13/23 07:09 Respiratory Rate 16 11/13/23 07:09 Blood Pressure 129/76 11/13/23 07:09 Pulse Oximetry 97 11/13/23 07:09 Oxygen Delivery Method Room Air 11/13/23 07:09 Airway Mallampati Class: II TM Dist: >3cm Neck ROM: Full Loose/Missing/Broken Teeth: No Heart: S1S2 Lungs: CTAB Assessment and Plan Assessment Anesthesia Assessment: Anesthesia Plan Discussed and Chart Reviewed Final Anesthetic Review Family History of Problems with Anesthesia: No History of Problems with Anesthesia: No NPO: Yes ASA Class: III Final Preanesthetic Review: No Changes in Pt Med Stat, Meds/Allgs Chart Reviewed, Consent Obtained/Reviewed and Anes Risks/Benef Reviewed Patient Risk: Intermediate Procedure Risk: Low Anesthetic Plan Anesthetic Plan: MAC: and Agree w/ Assess. and Plan Disposition: Standard PACU
[2023-11-13] MEDS: Lactated Ringers 1,000 ML 80 ML IVCONT (07:24)
--- NOTE | 2023-11-13 07:31 | PM.OP ---
Brief Operative Note Date of Service: 11/13/23 Pre-op diagnosis: GERD Post-op diagnosis: same (hiatal hernia and gastritis) Procedure: PROCEDURE DATE: 11/13/2023 PREOPERATIVE DIAGNOSIS: GERD POSTOPERATIVE DIAGNOSIS: ?Same as above. 1) small hiatal hernia, 2) distal gastritis PROCEDURE: Ohtbhevn-bimoni-atmwpzgbuvds with biopsies Surgeon: ?David Ambrose M.D.. Ph.D. Pupil Personnel Services Director: None ? Anesthesia: IV sedation Estimated blood loss: ?Minimal FINDINGS AND PROCEDURE: ? OPERATIVE INDICATIONS: ?The patient is a 33 year old female known to me who is interested in bariatric surgery. The patient has GERD. Based on this information I recommended an upper endoscopy to evaluate the patient's symptoms. Risks and complications of the surgery were discussed with the patient in advance particularly the possibility of perforation or bleeding that may require surgical intervention. The patient understood the risks and was in agreement with the plan. ? PROCEDURE: After informed consent was obtained by the patient, the patient was ?transferred to the Operating Room and was placed in the supine position.? After successful induction of IV sedation, a mouth block was inserted and the patient was placed in the left lateral decubitus position. An upper endoscopy was performed next, the oropharynx and esophagus appeared within the normal limits. There was a small 2cm hiatal hernia. The z-line was smooth. Two biopsies were obtained from the distal esophagus 2-3 cm proximal to the GE junction and two additional biopsies from the GE junction. The stomach was entered and it appeared to be of normal size. There was mild gastritis at distal antrum. There was no stricture or ulcer. A biopsy was obtained from the distal antrum. No significant bleeding was noted from any of the biopsy sites. The scope was then advanced into the duodenum which appeared to be normal as well. At that point the duodenum ?and the stomach were decompressed and the scope was withdrawn from the patient's mouth. The patient extubated and was transferred in stable condition to the Recovery Room for further care. I was present and performed all steps of the procedure. There were no residents to assist with this case. David Ambrose M.D., Ph.D. Surgeon: Refugio Ambrose MD Anesthesia: MAC Was an Pupil Personnel Services Director used for this Procedure?: No Estimated blood loss (mL): 0 IV fluids (mL): 400 Urine output (mL): 0 (No Talley to record output) Pathology: other (1) GEJ x2, antrum x1, proximal stomach x1, distal esophagus x2) Condition: stable Disposition: PACU
[2023-11-13 07:55] VITALS: BP 99/62; PULSE 96; RESP 22; TEMP 36.6; O2SAT 97
[2023-11-13 08:10] VITALS: BP 103/70; PULSE 80; RESP 18; O2SAT 96
== END 2023-11-13 08:45 | disposition home or self-care (01) ==
PROVIDERS: Nurse Practitioner; PCP Internal Medicine; Visit Provider Surgery
PROC: 0DJ08ZZ Inspection of Upper Intestinal Tract, Via Natural or Artificial Opening Endoscopic (ICD-10-PCS; CPT 43235; principal; 2023-11-13 07:30)
DX: K21.9 Gastro-esophageal reflux disease without esophagitis (principal); K29.70 Gastritis, unspecified, without bleeding; K44.9 Diaphragmatic hernia without obstruction or gangrene; E66.01 Morbid (severe) obesity due to excess calories; Z68.41 Body mass index [BMI] 40.0-44.9, adult; D68.51 Activated protein C resistance; F32.A Depression, unspecified; F41.1 Generalized anxiety disorder; B00.9 Herpesviral infection, unspecified; Z79.899 Other long term (current) drug therapy; Z87.891 Personal history of nicotine dependence
CPT/HCPCS: 43239; 81025; 88305; 88342; J2704

== ENCOUNTER → 2023-11-13 06:25 | Outpatient (BNV) | payer OTHER, SELFPAY | PROVIDERS: PCP Internal Medicine; Visit Provider Surgery | DX: K29.70 Gastritis, unspecified, without bleeding (principal) | CPT/HCPCS: 43239 ==

== ENCOUNTER 2023-11-14 10:43 | Outpatient (AMB) | payer OTHER, SELFPAY ==
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
== END 2023-11-14 10:48 | disposition home or self-care (01) ==
LOC: HO.HBST 10:43
PROVIDERS: PCP Internal Medicine; Visit Provider Counselor Mental Health
DX: F41.9 Anxiety disorder, unspecified (principal); F32.A Depression, unspecified; E66.01 Morbid (severe) obesity due to excess calories
CPT/HCPCS: 90791

== ENCOUNTER → 2023-11-14 10:43 | Outpatient (BNVA) | payer OTHER, SELFPAY | PROVIDERS: PCP Internal Medicine; Visit Provider Counselor Mental Health ==

== ENCOUNTER 2023-11-21 10:56 | Outpatient (AMB) | payer OTHER, SELFPAY ==
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
== END 2023-11-21 11:05 | disposition home or self-care (01) ==
LOC: HO.HBST 10:57
PROVIDERS: PCP Internal Medicine; Visit Provider Counselor Mental Health
DX: F41.9 Anxiety disorder, unspecified (principal); F32.A Depression, unspecified; E66.01 Morbid (severe) obesity due to excess calories
CPT/HCPCS: 90832

== ENCOUNTER → 2023-11-21 10:56 | Outpatient (BNVA) | payer OTHER, SELFPAY | PROVIDERS: PCP Internal Medicine; Visit Provider Counselor Mental Health ==

== ENCOUNTER 2023-11-26 08:52 | Outpatient (REF) | payer OTHER, SELFPAY ==
--- NOTE | ~2023-11-26 | US_ITS ---
EXAMINATION: US COMPLETE ABDOMEN WITH LIVER ELASTOGRAPHY CLINICAL INFORMATION: Morbid obesity. COMPARISON: None available. TECHNIQUE: Real-time imaging of the abdominal viscera. Noninvasive ultrasound liver fibrosis assessment is performed using Silviano ElastPQ point quantification shear wave elastography (2D-SWE) with a C5-2 MHz transducer. Multiple elastography samples are obtained. FINDINGS: PANCREAS: Normal. The visualized pancreatic head and body are normal in appearance. The remainder of the pancreas is obscured from visualization by the overlying bowel gas. ABDOMINAL AORTA: The proximal, middle, and distal aortic segments are normal in caliber. INFERIOR VENA CAVA: Visualized portions are normal. LIVER: The liver demonstrates normal contour and and increased echogenicity. No focal lesion or intrahepatic biliary duct dilatation. The right lobe measures 18.1 cm in length. The left lobe measures 13.4 cm in length. Portal flow is towards the liver (hepatopetal). Shear wave liver elastography median stiffness is 1.16 m/s (reference: normal median stiffness is 1.3 m/s or less). IQR/median stiffness to assess sampling precision is 0.14 (reference: good quality data set is IQR/median stiffness of 0.15 or less). GALLBLADDER: Normal. The gallbladder is physiologically distended without evidence of stones, sludge, polyps, wall thickening or pericholecystic fluid. COMMON BILE DUCT: Normal in caliber measuring 0.4 cm in diameter. RIGHT KIDNEY: Normal. No hydronephrosis. No renal calculi or focal parenchymal lesions. The kidney measures 11.0 cm in maximum dimension. LEFT KIDNEY: Normal. No hydronephrosis. No renal calculi or focal parenchymal lesions. The kidney measures 12.0 cm in maximum dimension. SPLEEN: Normal. The spleen measures 10.4 cm in maximum dimension. FREE FLUID: None. US/US abdomen comp w elastography IMPRESSION: 1. There is generalized increase in hepatic echotexture, consistent with fatty infiltration or hepatocellular disease. Please correlate clinically. No focal hepatic mass or intrahepatic biliary dilatation is seen. 2. There is mild hepatomegaly. 3. Liver elastography: Measurements are consistent with a high probability of normal liver stiffness. 4. Technically limited ultrasound examination of the pancreas. REFERENCE: Society of Radiologists in Ultrasound Liver Stiffness Thresholds (2020): LIVER STIFFNESS THRESHOLDS: *Liver Stiffness equal or less than 1.3 m/s: High probability of being normal. *Liver Stiffness less than 1.7 m/s: In the absence of other known clinical signs, rules out compensated advanced chronic liver disease. *Liver Stiffness 1.7-2.1 m/s: Suggestive of compensated advanced chronic liver disease but need further test for confirmation. *Liver Stiffness over 2.1 m/s: Rules in compensated advanced chronic liver disease. *Liver Stiffness over 2.4 m/s: Suggestive of clinically significant portal hypertension. QUALITY OF DATA SET: *IQR/Median value equal or less than 0.15 implies a quality data set. *IQR/Median value over 0.15 implies a poor quality data set. SIGNIFICANT CHANGE FROM PRIOR EXAM: Significant change if liver stiffness measurement is 10% or greater from prior exam. OTHER CONSIDERATIONS: The stage of liver fibrosis may be overestimated in the setting of acute hepatitis, liver inflammation, elevated liver function tests, hepatic vascular congestion, obstructive cholestasis, non-fasting state, and infiltrative diseases such as amyloidosis and lymphoma. In some patients with NAFLD, the liver stiffness thresholds for compensated advanced chronic liver disease may be lower. In causes other than viral hepatitis and NAFLD, liver stiffness thresholds are not well established.
== END 2023-11-26 08:53 | disposition home or self-care (01) ==
LOC: HO.US 08:52
PROVIDERS: PCP Internal Medicine; Visit Provider Surgery
DX: E66.01 Morbid (severe) obesity due to excess calories (principal)
CPT/HCPCS: 76705; 76981

== ENCOUNTER 2023-11-29 08:05 | Outpatient (AMB) | payer OTHER, SELFPAY ==
--- NOTE | 2023-11-29 08:02 | MHC.OFFVISWM ---
Intake VS Expanded 11/29/23 08:10 Height 5 ft 4 in Weight 249 lb 8 oz BMI 42.8 Body Fat % 56.2 Body Fat Mass 140.4 Fat Free Mass 109.4 Visceral Fat Rating 24 Body Water % 30 Body Water Mass 74.9 Basal Metabolic Rate/Score 1,431 Intake Visit Reasons: TV Follow Up SWL Allergies No Known Allergies Allergy (Verified 11/13/23 07:17) HPI TV Follow Up SWL HPI Details Start time: 7.56am, End time: 8.16am ?I spent 15 minutes speaking with the patient on the phone plus an additional 5 minutes reviewing and updating records for a total of 20 minutes HPI Comments History of Present Illness Details Overall: 12.4lbs, or 4.73% TBWL Is doing 2 Celebrate REBUILD protein shakes (1 scoop each in almond milk), 2 Zone Perfect protein bars and one meal (10 forks of protein and 10 forks of salad or vegetables) Exercise: doing treadmill x4/week for 400 calories PFSH Medical History (Updated 11/21/23 @ 11:54 by Halima Oakes) Factor 5 Leiden mutation, heterozygous Herpes simplex GERD (gastroesophageal reflux disease) Anxiety Depression Morbid obesity Surgical History (Updated 10/14/23 @ 10:48 by Gerda Serrato CMA) Hx of discectomy Hx of ovarian cystectomy Hx of wisdom tooth extraction Social History (Updated 10/14/23 @ 10:48 by Gerda Serrato CMA) Alcohol intake: current Alcohol intake frequency: holidays/special occasions only Alcohol type: beer Patient Tobacco Use Status: Former Tobacco user Quit Date: 10 YRS AGO Assessment & Plan Assessment & Plan (1) Morbid obesity: Code(s): E66.01 - Morbid (severe) obesity due to excess calories Plan: 1. Continue same nutritional plan of 2 Celebrate REBUILD protein shakes (1 scoop each in almond milk), 2 Zone Perfect protein bars and one meal (10 forks of protein and 10 forks of salad or vegetables) 2. Exercise: continue treadmill and try to either increase to 5 days per week for 400 calories, or increase calories to 450 per work-out, 4 days per week for 2 weeks and then to 500 calories 4 days per week 3. Continue to send me weight measurements weekly on Tuesdays Telehealth Telehealth Location of provider rendering services: practice address Location of patient: address on file Patient Identification confirmed using: Name, : Yes Telehealth method: voice only Patient verbally consented to treatment: Yes Patient verbally consented to billing insurance company: Yes Patient informed of any privacy concerns related to visit: Yes Minutes spent on Phone/Video with Pt.: 20 Coding Level of Care Code Tele Est Pt Level 3 (29045) Diagnoses Morbid obesity E66.01 Time Spent (min) 20
[2023-11-29 08:10] VITALS: BMI 42.8
== END 2023-11-29 08:16 | disposition home or self-care (01) ==
LOC: HO.HBS 08:05
PROVIDERS: PCP Internal Medicine; Visit Provider Surgery
DX: E66.01 Morbid (severe) obesity due to excess calories (principal); Z68.41 Body mass index [BMI] 40.0-44.9, adult
CPT/HCPCS: 99442

== ENCOUNTER → 2023-11-29 08:05 | Outpatient (BNVA) | payer OTHER, SELFPAY | PROVIDERS: PCP Internal Medicine; Visit Provider Surgery ==

== ENCOUNTER 2023-12-09 14:25 | Outpatient (AMB) | payer OTHER, SELFPAY ==
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
== END 2023-12-09 14:26 | disposition home or self-care (01) ==
LOC: HO.HBST 14:25
PROVIDERS: PCP Internal Medicine; Visit Provider Counselor Mental Health
DX: F41.9 Anxiety disorder, unspecified (principal); F32.A Depression, unspecified; E66.01 Morbid (severe) obesity due to excess calories
CPT/HCPCS: 90832

== ENCOUNTER → 2023-12-09 14:25 | Outpatient (BNVA) | payer OTHER, SELFPAY | PROVIDERS: PCP Internal Medicine; Visit Provider Counselor Mental Health ==

== ENCOUNTER 2023-12-11 08:00 | Outpatient (REF) | payer OTHER, SELFPAY ==
--- NOTE | ~2023-12-11 | FL_ITS ---
EXAMINATION: XR FLUOROSCOPY UPPER GI WITH AIR CLINICAL INFORMATION: Preop evaluation prior to bariatric surgery COMPARISON: None TECHNIQUE: Fluoroscopic air contrast upper GI examination was performed utilizing standard techniques with thin and thick barium and effervescent granules. Numerous spot images were obtained. FINDINGS: Lateral cine images of the oropharynx and hypopharynx demonstrate normal swallow mechanism with normal epiglottic inversion and soft palate elevation. No tracheal penetration, glottic or subglottic aspiration identified. No nasopharyngeal reflux present. Hypopharyngeal structures appear normal without evidence of mass or diverticulum. There was no significant cricopharyngeal achalasia. Dual and single contrast images of the esophagus demonstrate normal caliber, contour, and mucosal pattern. No evidence of stricture, mass, or ulcerations identified. Esophageal peristalsis was normal. No evidence of hiatus hernia identified. Gastroesophageal reflux is seen up to the thoracic inlet. Dual contrast and single contrast images of the stomach demonstrated normal contour and mucosal pattern without evidence of mass, ulceration, or other abnormality. Contrast freely passed into the gastric antrum and duodenal bulb without delay. Single and air-contrast images of the duodenal bulb demonstrate no abnormality. The duodenal sweep has a normal appearance, course, and mucosal fold appearance. There is a small diverticulum is present in the second portion of the duodenum. The imaged proximal jejunum has a normal fold pattern and caliber. FLUOROSCOPY TIME: 2 minutes 51 seconds Number of Spot Images: 13 Number of Cine: 8 DOSE AREA PRODUCT: 2704 uGy-m2 (microgray-meter squared) FL/FL upper GI w air IMPRESSION: 1. Severe gastroesophageal reflux 2. A tiny diverticulum is seen in the second portion of the duodenum This procedure was performed by Danilo Johansen PA-C, and supervised by Dr. eRa
--- NOTE | 2023-12-11 09:10 | CA_ITS ---
Acquisition Time: 2023-12-11 09:24:28 Total Exercise Time: 00:07:40 Test Indications: ABN REG STRESS TEST Medications: Protocol: MEGHAN Max HR: 169 BPM 90% of Pred: 187 BPM Max BP: 132/076 mmHG Max Work Load: 9.5 METS Exercise stress test exercises 7 min 40 sec of Meghan protocol achieving 90% MPHR, without anginal symptoms, with isolated PACs, with normotensive response to exercise, with t wave ionversion lead 2, 3, aVF, V3-V6 upon standing, and scooping noted in leads 2, 3, aVF, V4-V6. Nuclear images pending. Test reviewed with Dr. Fuller. Referred By: Jesus Hernandes Overread By: Radha Rea
== END 2023-12-11 08:01 | disposition home or self-care (01) ==
LOC: HO.XRAY 08:00
PROVIDERS: PCP Internal Medicine; Visit Provider Surgery
DX: E66.01 Morbid (severe) obesity due to excess calories (principal); R94.39 Abnormal result of other cardiovascular function study
CPT/HCPCS: 74246; 93017

== ENCOUNTER → 2023-12-11 08:01 | Outpatient (BNV) | payer OTHER, SELFPAY | PROVIDERS: PCP Internal Medicine; Visit Provider Radiology Diagnostic Radiology | DX: Z01.818 Encounter for other preprocedural examination (principal); E66.01 Morbid (severe) obesity due to excess calories | CPT/HCPCS: 74246 ==

== ENCOUNTER → 2023-12-11 09:10 | Outpatient (BNV) | payer OTHER, SELFPAY | PROVIDERS: PCP Internal Medicine; Visit Provider Nurse Practitioner | DX: R94.39 Abnormal result of other cardiovascular function study (principal) | CPT/HCPCS: 78452; 93016; 93018 ==

== ENCOUNTER → 2023-12-13 | Outpatient (REF) | payer OTHER, SELFPAY ==
--- NOTE | ~2023-12-13 | NM_ITS ---
Exercise Myocardial perfusion study Indication: Abnormal stress test evaluate for myocardial ischemia Technique: The patient was brought in for an exercise perfusion study on 12/11/2023. Patient performed exercise as per Garrick protocol and was injected 40 mCi of sestamibi was given intravenously one target HR was achieved. Images were obtained using the SPECT gamma camera interlaced with the gating device. Images were obtained in supine position. Resting perfusion study was performed on 12/13/2023. Patient was administered 40 mCi of sestamibi intravenously at rest. Images were then obtained in supine position. Images obtained with and without CT attenuation. Total DLP 151 mGy-cm. Images were processed with the software and compared side to side in short axis, horizontal long axis and vertical long axis views. Findings: The stress perfusion study showed non attenuated images show mildly reduced uptake in the basal and mid anterior as well as basal lateral wall of the LV myocardium. Remainder of the LV myocardium is normally perfused. Attenuation corrected images show reduced uptake in the distal anterior wall of the LV myocardium. The gated study shows normal LV systolic function with calculated LVEF of 70%. LV cavity is normal in size. The gated study shows normal systolic wall thickening and contraction of all segments. There is no transient ischemic dilation. Resting study shows no change in perfusion pattern compared to stress perfusion study. Gating at rest reveals normal systolic wall motion with ejection fraction at 66%. The findings are consistent with no clear reversible defect suggestive of ischemia. Fixed defect most likely suggestive of breast attenuation artifact despite attenuation correction. NM/NM cardiolite stress test Impression: 1. Normal myocardial perfusion 2. Gated LVEF is 70% 3. Transient ischemic dilatation not present Stress EKG is suggestive of ischemia
== END ==
LOC: HO.NUCMED
PROVIDERS: PCP Internal Medicine; Visit Provider Surgery
DX: R94.39 Abnormal result of other cardiovascular function study (principal)
CPT/HCPCS: 78452; A9500

== ENCOUNTER 2023-12-20 08:04 | Outpatient (AMB) | payer OTHER, SELFPAY ==
--- NOTE | 2023-12-20 08:44 | A.OFFVIS_ITS ---
Intake VS Expanded 12/20/23 08:56 Height 5 ft 4 in Weight 239 lb 6 oz BMI 41.1 Body Fat % 53.5 Body Fat Mass 128.1 Fat Free Mass 111.4 Visceral Fat Rating 22 Body Water % 31.9 Body Water Mass 76.4 Basal Metabolic Rate/Score 1,467 Intake Visit Reasons: TV Follow Up SWL *Can be pre op appt* Allergies No Known Allergies Allergy (Verified 12/20/23 08:44) Medication List - Last Reconciled 12/20/23 by Refugio Ambrose MD acyclovir 5% 1 appl topical 6XD ondansetron 4 mg PO Q12H pantoprazole 40 mg PO DAILY paroxetine HCl (Paxil) 10 mg PO DAILY polyethylene glycol 3350 (Miralax) 17 grams PO DAILY sucralfate 10 mL PO BID HPI TV Follow Up SWL *Can be pre op appt* HPI Details Start time: 8.37am, End time: 9.07am ?I spent 25 minutes speaking with the patient on the phone plus an additional 5 minutes reviewing and updating records for a total of 30 minutes HPI Comments History of Present Illness Details Overall weight loss: 22.6lbs, or 8.62% TBWL Is doing 2 Celebrate Rebuild (1 scoop in 8oz almond milk) shakes, 2 Celebrate protein bars and one meal (10 forks of meat and 10 forks of salad or vegetables) Exercise: treadmill for 300 calories per daily PFSH Medical History (Updated 11/21/23 @ 11:54 by Halima Oakes) Factor 5 Leiden mutation, heterozygous Herpes simplex GERD (gastroesophageal reflux disease) Anxiety Depression Morbid obesity Surgical History (Updated 10/14/23 @ 10:48 by Gerda Serrato CMA) Hx of discectomy Hx of ovarian cystectomy Hx of wisdom tooth extraction Social History (Updated 10/14/23 @ 10:48 by Gerda Serrato CMA) Alcohol intake: current Alcohol intake frequency: holidays/special occasions only Alcohol type: beer Patient Tobacco Use Status: Former Tobacco user Quit Date: 10 YRS AGO Assessment & Plan Assessment & Plan (1) Morbid obesity: Code(s): E66.01 - Morbid (severe) obesity due to excess calories Plan: 1. Plan for lap sleeve gastrectomy including upper GI endoscopy. All tests has been completed and reviewed and the patient is cleared for the surgery. ?If diaphragmatic or ventral hernias are present at time of surgery, these will be repaired laparoscopically as well. Risks and complications were discussed in detail including possible conversion to an open procedure, anastomotic leak, bleeding requiring transfusion, small bowel obstruction, , DVT and pulmonary embolism, cardiac, or pulmonary complications, as supervisor intermediates complications such as anastomotic ulcer, insufficient weight loss and vitamin deficiencies. I emphasized the importance of close follow-up, adherence to instructions and good communication. So far she has proven to be an excellent communicator and very compliant with all our directions accomplishing a great weight loss. I believe that she is an excellent candidate and she is ready. 2. Preop prescriptions were provided and explained the purpose of each one. Need to be purchased preop. Start Pantoprazole now as you get it from the pharmacy, 1 pill per day. Sucralfate and Zofran are for after surgery as needed. 3. Bowel prep: please do 7 packets ?of Miralax mixing each one with a an 8oz glass of water, crystal light, gatorade zero, or propel ?on 12/23/23 and the same amount on 12/24/23. The Miralax you begin with one packet at a time in 8oz water or crystal light, gatorade zero, or propel ?as early in the day as you can and you do them back to back until you finish them. Continue the protein shakes during? the bowel prep. 4. Needs to purchase 1oz medicine cups . 5. Needs to purchase Children's liquid Tylenol for postop pain control. 6. Avoid aspirin, motrin, Advil, Aleve, Ibuprofen, Naproxyn. Tylenol is OK. 7. She needs to purchase the Celebrate 4:1 protein shakes from the hospital's gift shop. 8. Will do basic preop blood work-up Tomorrow 12/21/23 fasting for 12 hours and is scheduled to see the Anesthesiologist prior to the day of surgery. 9. Importance of adherence to postop folllow-up and recommendations was underscored and she understands that. 10. Stop food and bars as of today 12/20/23 and continue with 3 Celebrate Rebuild protein shakes (ONE scoop EACH in 8oz almond milk) at 8am-10am, 11am-1pm and 2pm-4pm and 2 more Celebrate Rebuild protein shake with TWO scoops EACH in 8oz of almond milk at 5pm-7pm and 8pm-10pm. 11. No soups, broths or V8 12. The patient's?medical?history has been reviewed and they are considered low risk for post op DVT and therefore DVT prophylaxis is not considered necessary. Travel after surgery was reviewed. The patient has not disclosed any travel plans during the first 30 days after surgery and they have been advised that within the first 30 days after surgery any bus, plane, train or car travel over 2 hours in duration is contraindicated due to the possibility of developing blood clots from immobility. Any travel, needs to include periods of ambulation of 10 minutes in duration every 2 hours.? Patient was instructed to discuss any plans for travel during this period with their bariatric surgeon.? 13. Please take at the day of surgery the following medications: None 14. Stop any control pills and don't use them for one month after surgery 15. Absolutely no smoking or vaping, or marijuana until the surgery and for at least the first 4 weeks. Only nicotine patches are allowed. 16. Send me weight measurements on and then on the day of surgery before you go to the hospital. 17. Avoid any steroids by mouth for any reason. Let me know if someone prescribes them to you 18. These instructions supersede anything else you read in the handbook, anything you watched in videos or classes or you were told by any other provider. If there is any conflict, you follow the above instructions and nothing else. Orders: Orders Comprehensive Met. Panel Today E66.01 - Morbid (severe) obesity due to excess calories Type and Screen Today E66.01 - Morbid (severe) obesity due to excess calories Complete Blood Count Auto Diff Today E66.01 - Morbid (severe) obesity due to excess calories TSH reflex Free T4 Today E66.01 - Morbid (severe) obesity due to excess calories Hemoglobin A1c Today E66.01 - Morbid (severe) obesity due to excess calories Prothrombin Time INR Today E66.01 - Morbid (severe) obesity due to excess calories Partial Thromboplastin Time Today E66.01 - Morbid (severe) obesity due to excess calories C Reactive Protein Today E66.01 - Morbid (severe) obesity due to excess calories Lipid Panel Today E66.01 - Morbid (severe) obesity due to excess calories Insulin Today E66.01 - Morbid (severe) obesity due to excess calories Medications: New sucralfate 10 mL PO BID 600 mL 2RF K21.9 - Gastro-esophageal reflux disease without esophagitis polyethylene glycol 3350 (Miralax) Mix each packet with 8oz of water, Crystal light, or Gatorade zero, or Propel and do 7 packets on 12/23/23 and another 7 packets on 12/24/23 17 grams PO DAILY 14 ea 0RF Z01.818 - Encounter for other preprocedural examination pantoprazole 40 mg PO DAILY 90 tabs 0RF K21.9 - Gastro-esophageal reflux disease without esophagitis ondansetron Only take one every 12 hours as needed if you have nausea 4 mg PO Q12H 20 tabs 0RF nausea and vomiting R11.0 - Nausea Telehealth Telehealth Location of provider rendering services: practice address Location of patient: address on file Patient Identification confirmed using: Name, : Yes Telehealth method: voice only Patient verbally consented to treatment: Yes Patient verbally consented to billing insurance company: Yes Patient informed of any privacy concerns related to visit: Yes Minutes spent on Phone/Video with Pt.: 30 Coding Level of Care Code Tele Est Pt Level 4 (82965) Diagnoses Morbid obesity E66.01 Time Spent (min) 30
[2023-12-20 08:56] VITALS: BMI 41.1
== END 2023-12-20 09:08 | disposition home or self-care (01) ==
LOC: HO.HBS 08:04
PROVIDERS: PCP Internal Medicine; Visit Provider Surgery
DX: E66.01 Morbid (severe) obesity due to excess calories (principal); Z68.41 Body mass index [BMI] 40.0-44.9, adult
CPT/HCPCS: 99499

== ENCOUNTER → 2023-12-20 08:04 | Outpatient (BNVA) | payer OTHER, SELFPAY | PROVIDERS: PCP Internal Medicine; Visit Provider Surgery ==

== ENCOUNTER 2023-12-21 08:40 | Outpatient (REF) | payer OTHER, SELFPAY ==
[2023-12-21 09:16] LABS: MANUAL DIFF FLAG NO
[2023-12-21 09:58] LABS: Basophils Percent Auto 0.2 % (0-2); Eosinophils Absolute Auto 0.1 X10*3/uL (0.0-0.4); Eosinophils Percent Auto 0.6 % (0-4); Hematocrit 38.9 % (37.0-47.0); Hemoglobin 12.7 g/dl (12.0-16.0); Imm Gran Abs Auto 0.02 X10*3/uL (0.00-0.03); Imm Gran Pct Auto 0.2 % (0.0-0.4); Lymphocytes Absolute Auto 1.6 X10*3/uL (1.2-4.9); Lymphocytes Percent Auto 19.2 % (20-40); Mean Corpuscular HGB Conc 32.6 g/dl (31.0-35.0); Mean Corpuscular Hemoglobin 28.4 pg (27.0-33.0); Mean Platelet Volume 9.4 fL (9.4-12.3); Monocytes Absolute Auto 0.5 X10*3/uL (0.1-1.2); Monocytes Percent Auto 6.3 % (2-11); Neutrophils Absolute Auto 6.3 x10*3/uL (2.0-8.3); Neutrophils Percent Auto 73.5 % (45-73); Platelet Count 320 X10*3/uL (160-400); Red Blood Count 4.47 X10*6/uL (4.20-5.50); Red Cell Distribution Width 13.8 % (11.0-16.0); White Blood Count 8.5 X10*3/uL (4.8-10.8)
[2023-12-21 10:05] LABS: Estimated Average Glucose 97 mg/dL
[2023-12-21 10:08] LABS: Partial Thromboplastin Time 34.1 SEC (26.0-36.4)
[2023-12-21 10:18] LABS: Alanine Aminotransferase 21 U/L (0-31); Albumin Level 4.3 g/dL (3.5-5.0); Alkaline Phosphatase 82 U/L (39-117); Anion Gap 14 (12-20); Aspartate Amino Transferase 16 U/L (5-31); Blood Urea Nitrogen 9 mg/dL (9-16); Calcium 9.5 mg/dL (8.4-10.2); Carbon Dioxide 25 mmol/L (22-29); Chloride 105 mmol/L (96-108); Cholesterol 148 mg/dL (<200); Estimated Glomerular Filt Rate > 60; Glucose Random 93 mg/dL (60-115); HDL Cholesterol 40 mg/dL (>40); LDL Cholesterol Calculated 91 mg/dL (<100); Potassium 4.2 mmol/L (3.3-5.1); Sodium 140 mmol/L (135-145); Total Protein 7.3 g/dL (6.5-8.0); Triglycerides 88 mg/dL (<150)
[2023-12-21 10:34] LABS: Insulin 12 uU/mL (2-29); TSH reflex Free T4 0.62 uIU/mL (0.32-4.0)
== END 2023-12-21 08:41 | disposition home or self-care (01) ==
LOC: HO.LAB 08:40
PROVIDERS: PCP Internal Medicine; Visit Provider Surgery
DX: E66.01 Morbid (severe) obesity due to excess calories (principal)
CPT/HCPCS: 36415; 80053; 80061; 83036; 83525; 84443; 85025; 85610; 85730; 86140; 86850; 86900; 86901

== ENCOUNTER 2023-12-31 08:02 | Inpatient (IN) | payer OTHER, SELFPAY ==
[2023-12-24 11:52] VITALS: BMI 40.3
[2023-12-31] VITALS (13 sets, daily range): BP systolic 116–132; BP diastolic 61–82; PULSE 62–104; RESP 14–18; TEMP 36.1–36.8; O2SAT 94–100; BMI 40.7
--- NOTE | 2023-12-31 08:19 | PHA.MEDREC ---
Pharmacy Consult ? Medication Reconciliation RN has completed the medication reconciliation, pharmacy reviewed.
[2023-12-31 08:31] LABS: UPreg QC Valid YES; Urine Pregnancy NEGATIVE (NEGATIVE)
[2023-12-31] MEDS: Lactated Ringers 1,000 ML 999 ML IV (08:37)
[2023-12-31] MEDS: Aprepitant 32 MG/4.4 ML VIAL IVPUSH (08:37)
--- NOTE | 2023-12-31 09:31 | P.CONAN_ITS ---
HPI - Anesthesia Eval Consult details Narrative: Morbid Obesity [facility] Active Problems Active Problems: All Active Problems (Updated 12/24/23 @ 11:10 by Sana Babb RN) Anxiety disorder, unspecified (Acute) Abnormal stress test (Acute) Abnormal EKG (Acute) Herpes simplex (Acute) GERD (gastroesophageal reflux disease) (Acute) Anxiety (Acute) Depression (Acute) Morbid obesity (Acute) Past Medical History Medical History Hiatal hernia Factor 5 Leiden mutation, heterozygous Herpes simplex GERD (gastroesophageal reflux disease) Anxiety Depression Morbid obesity Family History Family history of problems with anesthesia: No Surgical History Surgical History Hx of hand surgery Hx of discectomy Hx of ovarian cystectomy Hx of wisdom tooth extraction History of Problems with Anesthesia: No Social History Social History Are you a primary patient care to a significant other at home: No Do you presently have visiting nurse or other home services: No Alcohol intake: current Alcohol intake frequency: holidays/special occasions only Alcohol type: beer Patient Tobacco Use Status: Former Tobacco user Quit Date: 10 YRS AGO Use of substances other than those prescribed or required for medical reasons: Yes Substance Use Type Other:: edibles Substance Use Frequency: Weekly Have you been hit, kicked, punched, or otherwise hurt by someone within the past year? If so, by whom?: No Advance Directives: No Advance Directives Information Provided: No Advance Directives on File: No Recently lost weight without trying: No Eating poorly because of decreased appetite: No Nutrition Risks: No Nutritional Risk Patient : No : No Poor oral hygiene: No Meds Allergies Allergy/AdvReac Type Severity Reaction Status Date / Time No Known Allergies Allergy Verified 12/31/23 08:07 Active Medications: Current Medications Lactated Ringer's (Lr) 1,000 mls @ 999 mls/hr IV .Q1H1M CHRISTOPHER Stop: 12/31/23 10:15 Last Admin: 12/31/23 08:37 Dose: 999 mls/hr Home Medications Medication Instructions Recorded Confirmed Last Taken Type acyclovir 5 % topical ointment 1 appl topical 6XD 10/21/23 12/31/2323 History paroxetine HCl 10 mg tablet (Paxil) 20 mg PO DAILY 10/21/23 12/31/23 12/29/23 History Exam Height,Weight and Vital Signs: Height 5 ft 4 in Weight 107.683 kg Last Vital Signs Temp 98.2 F 12/31/23 08:17 Pulse 80 12/31/23 08:17 Resp 16 12/31/23 08:17 BP 127/82 12/31/23 08:17 Pulse Ox 97 12/31/23 08:17 O2 Del Method Room Air 12/31/23 08:17 Pertinent Lab Results Pertinent Lab Results: Laboratory Tests 12/21/23 12/31/23 09:07 08:12 Urine Test NEGATIVE Blood Type O Positive Antibody Screen NEGATIVE Airway Mallampati Class: II TM Dist: >3cm Neck ROM: Full Loose/Missing/Broken Teeth: No Heart: rrr+s1s2 Lungs: cta b/l Assessment and Plan Assessment Anesthesia Assessment: Anesthesia Plan Discussed and Chart Reviewed Final Anesthetic Review Family History of Problems with Anesthesia: No History of Problems with Anesthesia: No NPO: Yes ASA Class: III Final Preanesthetic Review: No Changes in Pt Med Stat, Meds/Allgs Chart Reviewed, Consent Obtained/Reviewed and Anes Risks/Benef Reviewed Patient Risk: Intermediate Procedure Risk: Intermediate Assessment/Block/Sedation in SS: Assess/Block/Sedation-SS Anesthetic Plan Anesthetic Plan: GA and Agree w/ Assess. and Plan Disposition: Standard PACU
--- NOTE | 2023-12-31 10:30 | MHC.SHP ---
Pre-Procedural Eval Section A - 24 Hr Update-Section A only Date of Service: 12/31/23 The patient is an INPATIENT: Yes The patient has been examined within 24 hours of the surgical procedure. The History & Physical has been completed within 30 days and I have reviewed it.: Yes Section B - Complete if H&P > 30 days Chief Complaint: Morbid obesity Relevant Family History (Specify if Yes): No Relevant Social History: None Present Medications: None Medical History: No relevant PMH History of Previous Operations: No relevant previous surgery Allergies: Allergies Allergy/AdvReac Type Severity Reaction Status Date / Time No Known Allergies Allergy Verified 12/31/23 08:07 Review of Systems Sugical H&P ROS: Negative: Constitution, Cardiovascular, Respiratory, Neurological, Psychiatric, Hem-Onc, Allergic/Immunologic, Gastrointestinal, Genitourinary, Musculoskeletal, Integumentary, Endocrine and Eyes/Ears/Nose/Throat Exam Surgical H&P Exam: Normal: HEENT, Normal: Heart, Normal: Lungs, Normal: Extremities, Normal: Abdomen, Normal: Skin and Normal: Neurological Plan Diagnosis/Plan: Unchanged I have reviewed the history and physical and performed a pertinent physical examination on my patient. No changes have occurred unless specified. Time Spent With Patient Time: Total time managing care of this patient today ____ minutes.
--- NOTE | 2023-12-31 10:48 | P.BOP_ITS ---
Brief Operative Note Date of Service: 12/31/23 Pre-op diagnosis: Morbid obesity Post-op diagnosis: same Procedure: INITIAL PATIENT BMI ON PRESENTATION AT OUR OFFICE: 45 kg/m2 LAST BMI BEFORE SURGERY: 40.7 kg/m2 COMORBIDITIES: depression, anxiety, herpes simple, GERD, liver steatosis ?The patient presented to the Weight Management Program with significant obesity that was negatively impacting the patient's comorbidities as listed above.? The program is a phased program with a special focus on preoperative medical weight management to promote substantial weight loss and prepare the patients for the second phase of the program: bariatric surgery. The patient participated in an intensive weekly lifestyle ?intervention and exercise program during which the patient ?has lost between the initial office visit and the last preoperative v isit 26.6 lbs, or 10.14% of initial actual body weight. It was deemed appropriate for the patient to now have bariatric surgery. In light of the current Covid-19 pandemic and the well documented strong association of obesity and increased risk of worse outcomes if infected with Covid-19 (REFERENCES: https://pubmed.ncbi.nlm.nih.gov/20838820/ ,? https://pubmed.ncbi.[facility] [facility].nih.gov/32110853/ ), any delay in undergoing bariatric surgery may lead to the patient's worsening health condition and increased?risk of more severe Covid-19 disease if infected. In addition a recent?study from [facility] published in [employer] on 11/27/2021 ([email or web address]) found that, among patients with obesity, substantial weight loss achieved with surgery was associated with improved outcomes of COVID-19 infection. The findings suggest that obesity can be a modifiable risk factor for the severity of COVID-19 infection. In addition, the patient met the BMI-criteria for bariatric surgery based on the BMI on initial presentation. The patient should not be penalized for achieving such weight loss because ?it is not sustainable long-term without surgical intervention and it was achieved in preparation for bariatric surgery ?under my direction and based on my published research ([email or web address]/ [email or web address]).[email or web address] and? https://www.soard.org/article/C3351-5408(76)12486-X/pdf ) ?that a 10% preoperative weight loss improves long-term weight loss after surgery and reduces perioperative complications.? Insurance carriers such as [facility] have endorsed my recommendations ?and have included in their policies criteria to include a 10% preoperative weight loss requirement. PROCEDURE: Esophago-gastroscopy laparoscopic sleeve gastrectomy and laparoscopic gastropexy INDICATIONS: This is a 33 year-old female who was electively scheduled for lapar oscopic, possibly open sleeve gastrectomy. The risks and complications of the procedure were discussed with the patient in advance, particularly the possibility of ; pulmonary embolism; staple line leak; bleeding; GERD; cardiac, pulmonary, or renal complications; as well as long-term problems such as insufficient weight loss, vitamin deficiency, strictures, or ulcers. The patient understood all the risks, and was in agreement to proceed with surgery. DESCRIPTION OF PROCEDURE: After informed consent was obtained from the patient, the patient was given preoperative antibiotics, and was transferred to the operating room. After successful induction of general anesthesia, pneumatic compression devices were placed on both lower extremities. An upper endoscopy was performed next. The oropharynx and esophagus appeared to be within normal limits. There was no diaphragmatic hernia present consistent with the findings of the preoperative upper GI. The stomach was entered. Then after all fluid and air were suctioned and the stomach was fully decompressed, the scope was withdrawn and secured in the mid esophagus. The patient was then prepped and draped in the usual sterile manner, and a bdominal access was established at the right upper quadrant with the Ethel technique. A 12 mm blunt port was inserted, and the abdomen was insufflated with CO2 to a pressure of 15 mmHg. Under direct visualization, additional ports were placed, specifically two 5 mm Versi-step ports to the left upper quadrant, and a 5 mm Versi-Step port to the right upper quadrant. 1% lidocaine plain was used to infiltrate all port sites as well as all fascia defects. Following that, the patient was placed in a steep reverse Trendelenburg position. An additional 5 mm port was placed to the right flank for the Mediflex retractor that was used to retract the left lobe of the liver. The gastro-esophageal fat pad was opened with the ultrasonic device (Thunderbeat, Olympus) and the anterior esophagus and hiatus were exposed. The angle of His was opened with the ultrasonic device the fundus of the stomach from any diaphragmatic and splenic attachments. I then opened the gastrocolic ligament between the transverse colon and the greater curvature of the stomach with the ultrasonic device to enter the lesser sac and facilitate the ligation of the short gastric vessels. I started at a mid-point along the greater curvature and using the Thunderbeat, all short gastric vessels were divided all the way to the angle of His until the left shawna was completely dissected at its entirety. I then divided the gastro-colic ligament distally to a distance of about 3-4 cm proximal to the pylorus. The stomach was then divided transversely with two Endo ANGELLA-45 purple and three ANGELLA-60 articulating purple loads using the Acertiv stapler and loads. Every effort was made that the gastric sleeve had a tubular shape and an even caliber throughout. Once the sleeve resection was completed, the staple line of the gastric sleeve was reinforced with Hemoclips. The resected stomach was retrieved without difficulty from the Ethel port. A gastropexy was then performed in order to prevent postoperative GERD and partial gastric volvulus. Several interrupted 2.0 Surgidac sutures were placed between the sleeve's staple line and the previously divided greater omentum and gastro-colic ligament using the Endo-Stitch device. ?An upper endoscopy was performed. There was no narrowing at the GE junction. The scope was easily advanced all the way to the pylorus which was clearly visualized. There was no narrowing anywhere and the sleeve's caliber was even throughout. The sleeve's staple line was inspected and there was no evidence of ischemia, bleeding or dehiscence. At that point the gastroscope was withdrawn from the patient?s mouth while we were decompressing the bowel and the stomach from any remaining air. I looked into the lesser sac to see how the sleeve was situating and it was situating well. There was no bleeding from the staple line, spleen, or short gastric vessels. The Mediflex retractor was removed, and the undersurface of the liver was inspected and there was no bleeding. The patient was placed in supine position. I closed the fascial defect of the 12 mm port site with a figure of eight #1 Polysorb suture. Then 30cc Ropivacaine plain with 10 mg of Dexamethasone were used to infiltrate the fascial closure as well as all skin incisions. At this point, the abdomen was deflated, all ports were removed under direct vision, and no bleeding was noted from any of the port sites. The skin incisions were irrigated with saline and were closed with 4-0 absorbable monofilament sutures. Steri-Strips and OpSites were used to cover all incisions. The patient was extubated and was transferred in stable condition to the recovery room for further care. I was present and performed all alfaro parts of the procedure. Davison was the heel sprayer first. There were no residents to assist with this case. David Ambrose MD, PhD, FACS Surgeon: Refugio Ambrose MD Anesthesia: GETA, local and other (TAP block) Was an Bridge Design Engineer used for this Procedure?: No Bridge Design Engineer: Leia Davison Estimated blood loss (mL): 10 IV fluids (mL): 3,000 Urine output (mL): 0 (No Talley to record output) Pathology: other (Stomach) Condition: stable Disposition: PACU
--- NOTE | 2023-12-31 10:48 | PM.DS ---
DS: Providers Provider Date of Service: 01/01/24 Date of admission: 12/31/23 08:02 Primary care physician: Toby Thurman MD DS: Summary Hospital Course Hospital Course: ADMITTING DIAGNOSIS: morbid obesity, GERD, Anxiety and depression DISCHARGE DIAGNOSIS: same, s/p laparoscopic sleeve gastrectomy PAST SURGICAL HISTORY: discectomy, ovarian cystectomy PROCEDURE: upper endoscopy, laparoscopic sleeve gastrectomy DISCHARGE SUMMARY: History of Present Illness: The patient is a 33 year-old woman with a BMI of 45.0 kg/m2 and associated co-morbidities as described above. The patient had extensive work-up, lost 22.6 lbs preoperatively and was electively scheduled for laparoscopic, possible open sleeve gastrectomy and gastropexy. Risks and complications of the surgery were discussed with the patient in advance, particularly the possibility of , pulmonary embolism, anastomotic leak, bleeding, bowel injury, GERD, cardiac, renal or pulmonary complications. The patient understood all the risks and was in agreement with the surgical plan. Hospital Course: The patient underwent an uneventful laparoscopic sleeve gastrectomy with gastropexy on the day of admission. Postoperatively, the patient was transferred to the surgical floor. The patient received IV Acetaminophen and IV dilaudid for pain control. Patient was started on bariatric phase 1 diet POD #0. On postoperative day one, the patient was feeling well without nausea, vomiting, fevers, or tachycardia. The patient had some mild incisional pain and the abdomen was soft. On the morning of postoperative day one, the patient was continued on 1 ounce of water or ice every half hour. During the day, the patient did fairly well, having some incisional pain, but able to ambulate adequately and to tolerate liquids well. Since the patient is doing well, we decided that the patient was ready to be discharged. The patient was given instructions to follow-up with me next week and to call my office for any fever over 101, persistent abdominal pain, nausea, vomiting, GERD, symptoms of DVT such as calf tenderness, or leg swelling, or pulmonary embolism such as chest pain or shortness of breath. The patient was also instructed to drink 40-60 ounces of liquids per day using the 1-ounce cups. The patient had been given prescriptions for Tylenol for pain, Zofran prn for nausea, and pantoprazole and carafate previously. The patient was encouraged to ambulate and use the incentive spirometer. The patient was allowed to shower, but no baths, and encouraged to stay active at home. All of these instructions were given to the patient personally. All questions were answered and the patient understood all instructions, the instructions were also given to the patient in print. Time Attestation Discharge coordination time: Less than 30 minutes Quality: Safe Use of Opioids Does Pt have an Active Cancer Diagnosis on the Problem List?: No Quality: Stroke Does the patient have a stroke diagnosis?: No Physical Exam Vital Signs: Vital Signs: Last Vital Signs Temp 98.2 F 12/31/23 08:17 Pulse 80 12/31/23 08:17 Resp 16 12/31/23 08:17 BP 127/82 12/31/23 08:17 Pulse Ox 97 12/31/23 08:17 O2 Del Method Room Air 12/31/23 08:17 BMI result Body Mass Index 40.7 DS: Data Data Completed and Pending Labs on day of discharge: Laboratory Results - last 24 hr 12/31/23 08:12 Urine Test NEGATIVE Discharge Plan Discharge Anticipated Discharge Date/Time: 01/01/24 10:49 Patient Disposition: Home, Self-Care Discharge Diagnosis: s/p sleeve gastrectomy Referrals: Toby Thurman MD [Primary Care Provider] - 1 Week Discharge Medications: Continued pantoprazole 40 mg tablet,delayed release (DR/EC) 40 mg PO DAILY Qty: 90 0RF sucralfate 100 mg/mL suspension 10 ml PO BID Qty: 600 2RF ondansetron 4 mg tablet,disintegrating 4 mg PO Q12H Qty: 20 0RF Rx Instructions: Only take one every 12 hours as needed if you have nausea paroxetine HCl [Paxil] 10 mg tablet 20 mg PO DAILY acyclovir 5 % ointment 1 appl topical 6XD Discharge Orders: Discharge Order (Routine); Ordered 01/01/24 Ordered By: Refugio Ambrose Activity on Discharge: No heavy lifting Stand Alone Forms: Patient Portal Discharge page Care Plan Goals: weight loss Health Concerns: morbid obesity Plan of Treatment: No tub baths, sex or returning to work until discussed at first post op appointment. No exercise, alcohol, tobacco or illegal drug use. Continue to use incentive spirometer hourly while awake. Walk in home for 5- 10 minutes every 2 hours during the first week. Continue phase 1 diet today and start phase 2 diet tomorrow morning. Follow all instructions in the bariatric handbook and call with any questions. 1. Please call your doctor or come back to the emergency room should any new symptoms arise. 2. You will receive a courtesy call from [facility] 24-48 hours after discharge. 3. Activity: abstain from alcohol, practice limited stair climbing, no bending, no driving, no exercise, no illicit substances, no lifting, no sex, no tub bath, no work. 4. Diet: continue as discussed with bariatric team.. 5. Dressing Change/Wound Care: Do not change or remove surgical dressings unless they are wet or soiled. 6. Call your doctor if: - Your temperature exceeds 101.5 F - You experience excessive pain or swelling - You have an unexpected reaction to medication - You have excessive bleeding - You experience continued vomiting/nausea - Your incision begins to separate - Your incision shows signs of infection such as increased redness, swelling, excessive pain, heat, or drainage (light blood or clear fluid is normal) 7. General instructions: No lifting greater than 5 lbs for 1 week and not more than 20lbs the next 3?weeks. No driving until seen at the office in 5-7 days after surgery. If you do not move your bowels in the next 2 days, please tell?Dr. Ambrose. Please walk around your home every hour or two to prevent blood clots from forming in your legs. You do not need to wake from sleeping to walk. Please sleep in a bed or couch to prevent kinking at the hips and knees. Please take your incentive spirometer (your lung treatment coordinator) home with you and use it for the next few days to prevent pneumonia. You may shower, no hot tubs, baths or swimming pools.?Please follow the post op diet instructions you are?given by Dr Shawn enrique? and text me daily at 5-6pm for an update.?If you have any issues or concerns or questions please communicate this to him via text.? The Celebrate shakes have all of the bariatric vitamins you need if you consume these shakes. If you are drinking other protein shakes, you will need to purchase the Celebrate multivitamins and calcium that are available in the hospital gift shop on the first floor of the [facility].??Do not take anything without first discussing with Dr Ambrose. Please make sure you are consuming at least 40 ounces of fluids per day starting the?day AFTER your discharge from the hospital. Always drink 1-2 ml per minute using the 5ml?syringe. If you drink faster you may experience?bloating,?gas pain, burping, nausea or heartburn. In that case please slow down your pace and use the syringe to?understand better the?proper?pace and volume of drinking. Do not hesitate to contact the office with any questions at . The patient's medical history has been reviewed and they are considered low risk for post op DVT and therefore DVT prophylaxis is not considered necessary. Travel after surgery was reviewed. The patient has not disclosed any travel plans during the first 30 days after surgery and they have been advised that within the first 30 days after surgery any bus, plane, train or car travel over 2 hours in duration is contraindicated due to the possibility of developing blood clots from immobility. Any travel, needs to include periods of ambulation of 10 minutes in duration every 2 hours. The patient was instructed to discuss any plans for travel during this period with their bariatric surgeon. Assessment: stable, post op sleeve gastrectomy Discharge Date/Time: 01/01/24 09:46
--- NOTE | 2023-12-31 10:50 | P.PNGS_ITS ---
Subjective Subjective Date of Service: 01/01/24 Interval history: Feels well. Mild incisional pain. She is tolerating phase 1 bariatric diet Physical Exam 2 Vital Signs: Vital Signs: Last Vital Signs Temp 98.2 F 12/31/23 08:17 Pulse 80 12/31/23 08:17 Resp 16 12/31/23 08:17 BP 127/82 12/31/23 08:17 Pulse Ox 97 12/31/23 08:17 O2 Del Method Room Air 12/31/23 08:17 BMI result Body Mass Index 40.7 GI: Inspection: Yes normal to inspection, Yes incision (clean, dry and intact) and Yes obesity Palpation (GI): Soft to palpation Extrem: Right lower extremity: normal to inspection (no calf tenderness) L eft lower extremity: normal to inspection (no calf tenderness) Objective Data Active Medications Fentanyl (Fentanyl Citrate/Pf 100 Mcg/2 Ml Vial) 50 mcg IVPUSH Q5M PRN; Protocol PRN Reason: Pain, Moderate(Pain Scale 4-6) Hydromorphone HCl (Hydromorphone Hcl 0.5 Mg/0.5 Ml Syringe) 0.5 mg IVPUSH Q5M PRN; Protocol PRN Reason: Pain, Severe (Pain Scale 7-10) Ondansetron HCl (Ondansetron Hcl 4 Mg/2 Ml Vial) 4 mg IVPUSH ONCE PRN PRN Reason: Nausea and Vomiting Labs 01/01/24 06:05 01/01/24 06:05 Labs: Laboratory Results - last 24 hr 12/31/23 08:12 Urine Test NEGATIVE Procedures Date of Service Date of Service: 01/01/24 Progress Note: A&P Assessment and plan (1) Morbid obesity: Status: Acute Assessment and Plan: s/p laparoscopic sleeve gastrectomy and gastropexy Doing well Will check am labs and if OK the patient will be discharged home (2) Depression: Status: Acute (3) Anxiety: Status: Acute (4) Herpes simplex: Status: Acute (5) GERD (gastroesophageal reflux disease): Status: Acute (6) S/P laparoscopic sleeve gastrectomy: Status: Acute Time Spent With Patient Time: Total time managing care of this patient today ____ minutes. Quality Stroke Does the patient have a stroke diagnosis?: No VTE Prior VTE?: No VTE Risk Level:: Surgical - moderate VTE Device Contraindication: Treatment Not Indicated VTE Drug Contraindication: N/A - Med Ordered
[2023-12-31] MEDS: ondansetron HCL 4 MG/2 ML VIAL IVPUSH (13:22)
[2023-12-31 13:48] LABS: Hematocrit 33.9 % (37.0-47.0); Hemoglobin 11.3 g/dl (12.0-16.0)
[2023-12-31 14:02] LABS: Anion Gap 17 (12-20); Blood Urea Nitrogen 9 mg/dL (9-16); Calcium 8.7 mg/dL (8.4-10.2); Carbon Dioxide 18 mmol/L (22-29); Chloride 108 mmol/L (96-108); Creatinine Clr Calc Pharmacy 143.1; Estimated Glomerular Filt Rate > 60; Glucose Random 98 mg/dL (60-115); Potassium 3.7 mmol/L (3.3-5.1); Sodium 139 mmol/L (135-145)
[2023-12-31] MEDS: ceFAZolin Sodium/Dextrose,Iso 2 GM/50 ML PIGGYBACK IV (16:33)
[2023-12-31] MEDS: Lactated Ringers 1,000 ML 100 ML IVCONT (16:33)
[2023-12-31] MEDS: Famotidine/PF 20 MG/2 ML VIAL IVPUSH ×2 (16:33→21:19)
[2023-12-31] MEDS: 0.9 % Sodium Chloride Flush 3 ML SYRINGE IVFLUSH ×2 (16:34→21:19)
[2023-12-31] MEDS: Acetaminophen 1,000 MG/100 ML PIGGYBACK 16.7 MG IV ×2 (17:25→22:26)
[2023-12-31] MEDS: Metoclopramide HCl 10 MG/2 ML VIAL IVPUSH (18:44)
[2023-12-31] MEDS: PARoxetine HCL 20 MG TABLET PO (21:19)
[2024-01-01] MEDS: Lactated Ringers 1,000 ML 100 ML IVCONT (02:03)
[2024-01-01 03:15] VITALS: BP 132/80; PULSE 71; RESP 18; TEMP 36.1; O2SAT 97
[2024-01-01] MEDS: Acetaminophen 1,000 MG/100 ML PIGGYBACK 16.7 MG IV (04:16)
[2024-01-01 06:28] LABS: MANUAL DIFF FLAG NO
[2024-01-01 06:45] VITALS: BP 125/75; PULSE 65; RESP 16; TEMP 35.5; O2SAT 98
[2024-01-01 06:54] LABS: Anion Gap 16 (12-20); Basophils Percent Auto 0.1 % (0-2); Blood Urea Nitrogen 6 mg/dL (9-16); Carbon Dioxide 14 mmol/L (22-29); Chloride 109 mmol/L (96-108); Creatinine Clr Calc Pharmacy 152.1; Estimated Glomerular Filt Rate > 60; Glucose Random 115 mg/dL (60-115); Hematocrit 37.8 % (37.0-47.0); Hemoglobin 12.3 g/dl (12.0-16.0); Imm Gran Abs Auto 0.03 X10*3/uL (0.00-0.03); Imm Gran Pct Auto 0.3 % (0.0-0.4); Lymphocytes Absolute Auto 1.1 X10*3/uL (1.2-4.9); Lymphocytes Percent Auto 11.8 % (20-40); Mean Corpuscular HGB Conc 32.5 g/dl (31.0-35.0); Mean Corpuscular Hemoglobin 28.3 pg (27.0-33.0); Mean Corpuscular Volume 87.1 fL (80.0-98.0); Mean Platelet Volume 10.3 fL (9.4-12.3); Monocytes Absolute Auto 0.4 X10*3/uL (0.1-1.2); Monocytes Percent Auto 4.9 % (2-11); Neutrophils Absolute Auto 7.4 x10*3/uL (2.0-8.3); Neutrophils Percent Auto 82.9 % (45-73); Platelet Count 338 X10*3/uL (160-400); Potassium 4.1 mmol/L (3.3-5.1); Red Blood Count 4.34 X10*6/uL (4.20-5.50); Red Cell Distribution Width 13.6 % (11.0-16.0); Sodium 135 mmol/L (135-145)
[2024-01-01] MEDS: Famotidine/PF 20 MG/2 ML VIAL IVPUSH (07:43)
--- NOTE | 2024-01-01 08:58 | MHC.CM.PN ---
Patient is from home with her significant other, Kermit, and her 4 year old daughter. She is functionally independent. No services or DME. PCP: Toby Thurman MD HCP: CM assisted patient in completing. Patiet named agents 1) Kermit Rodríguez [phone] 2) Valencia Romero [phone] (mother). Copies provided to patient and copy placed in paper chart. DP: Patient is medically cleared for home self care. Mom is at bedside to transport.
--- NOTE | 2024-01-01 14:29 | HO.POSTANES ---
Post Anesthesia Evaluation Post Anesthesia Evaluation Date of Service: 01/01/24 Vital Signs: Vital Signs Temp Pulse Resp BP Pulse Ox O2 Del Method 01/01/24 06:45 96 F L 65 16 125/75 98 Room Air 01/01/24 03:15 97.0 F 71 18 132/80 97 Room Air Anesthesia: General Endotracheal-GETA Mental Status: Awake Pain Control: Satisfactory Nausea/Vomiting: None Hydration: Adequate Anesthesia-Related Issues: No Anes. Related Issues
== END 2024-01-01 09:46 | disposition home or self-care (01) | DRG 620 ==
LOC: HO.SSSA 12:52 → HO.S3 15:02
PROVIDERS: Anesthesiology; Physician Assistant; Admitting Provider Surgery; PCP Internal Medicine; Visit Provider Surgery
PROC: 0DB64Z3 Excision of Stomach, Percutaneous Endoscopic Approach, Vertical (ICD-10-PCS; CPT 43845; principal; 2023-12-31 10:10)
DX: E66.01 Morbid (severe) obesity due to excess calories (principal); D68.51 Activated protein C resistance; F32.A Depression, unspecified; F41.9 Anxiety disorder, unspecified; K21.9 Gastro-esophageal reflux disease without esophagitis; K76.0 Fatty (change of) liver, not elsewhere classified; B00.9 Herpesviral infection, unspecified; Z68.41 Body mass index [BMI] 40.0-44.9, adult; Z87.891 Personal history of nicotine dependence; Z79.899 Other long term (current) drug therapy
CPT/HCPCS: 36415; 80048; 81025; 85014; 85018; 85025; 86850; 86900; 86901; 88304; 88305; 88307; 88342; 99024; A4649; C9145; J0131; J0690; J1100; J1170; J1596; J2250; J2405; J2704; J2765; J2795; J3010; J7120

== ENCOUNTER → 2023-12-31 08:02 | Outpatient (BNV) | payer OTHER, SELFPAY | PROVIDERS: Admitting Provider Surgery; PCP Internal Medicine; Visit Provider Surgery | DX: E66.01 Morbid (severe) obesity due to excess calories (principal); Z68.41 Body mass index [BMI] 40.0-44.9, adult; Z90.3 Acquired absence of stomach [part of]; Z98.84 Bariatric surgery status | CPT/HCPCS: 43659; 43775; 99024 ==

== ENCOUNTER 2024-01-07 10:18 | Outpatient (AMB) | payer OTHER, SELFPAY ==
--- NOTE | 2024-01-07 11:07 | A.OFFVIS_ITS ---
Intake VS Expanded 01/07/24 11:16 BP 133/63 Blood Pressure Location Rt brachial Blood Pressure Position Sitting Pulse 86 Pulse Source Pulse Oximeter Temp 97.6 F Temperature Source Temporal Artery Scan Pulse Oximetry 100 Oxygen Delivery Method Room Air Height 5 ft 4 in Weight 221 lb 6.4 oz BMI 38.0 Body Fat % 44.7 Body Fat Mass 99.0 Fat Free Mass 122.4 Visceral Fat Rating 10.0 Body Water % 39.6 Body Water Mass 87.8 Muscle Mass/Score 116.2 Basal Metabolic Rate/Score 1,739 Intake Visit Reasons: (OV) PO LSG 12/31/23 Allergies No Known Allergies Allergy (Verified 01/07/24 11:08) HPI HPI Comments History of Present Illness Details The patient is a pleasant 33-year-old female returns to the office today in follow-up. She is 7 days post sleeve gastrectomy performed by Dr. Ambrose on 12/31/2023. She is tolerating 3 celebrate 4 in 1 shakes with 1 scoop each and 50-55 oz of fluids. She has moved her bowels and has no complaints at today's visit. [facility] Medical History Hiatal hernia Factor 5 Leiden mutation, heterozygous Herpes simplex GERD (gastroesophageal reflux disease) Anxiety Depression Morbid obesity Surgical History (Updated 01/07/24 @ 11:09 by Stephanie Suggs CMA) S/P laparoscopic sleeve gastrectomy Hx of hand surgery Hx of discectomy Hx of ovarian cystectomy Hx of wisdom tooth extraction Social History Household Members: Family Housing: House Are you a primary care tech to a significant other at home: No Do you presently have visiting nurse or other home services: No Alcohol intake: current Alcohol intake frequency: holidays/special occasions only Alcohol type: beer Patient Tobacco Use Status: Former Tobacco user Quit Date: 10 YRS AGO Substance Use Type: Marijuana service: No Physical Exam Vital Signs: Last Vital Signs Temp 97.6 F 01/07/24 11:16 Pulse 86 01/07/24 11:16 BP 133/63 01/07/24 11:16 Pulse Ox 100 01/07/24 11:16 Oxygen Delivery Method Room Air 02/06/24 11:16 BMI result Body Mass Index 38.0 GI Inspection: Yes incision (Clean, dry, intact.) Assessment & Plan Assessment & Plan (1) S/P laparoscopic sleeve gastrectomy: Code(s): Z98.84 - Bariatric surgery status Plan: POD 7 s/p LSG on 12/31/[address] Ambrose Weight loss prior to surgery was 25.6 pounds or 9.7 % TBWL. Original weight on 10/20/2023 was 262.3 pounds and op weight was 236.7 pounds. Be sure to text Dr Ambrose exactly 1 week after surgery your weight from your home scale so he can adjust your meal plan. Continue meal plan until f/u w [facility] in 2 weeks May shower, no submersion in bath for another week Continue abdominal binder with activity and exercise for the next 2 weeks. Exercise prior to surgery was treadmill, may resume No abdominal exercises for 6 weeks post operatively Will be emailed link to post op video for review Reminded of the pace of drinking, 2 mL per minute, 1 oz/15 min. Coding Level of Care Code Global (72035) Diagnoses S/P laparoscopic sleeve gastrectomy Z98.84
[2024-01-07 11:16] VITALS: BP 133/63; PULSE 86; TEMP 36.4; O2SAT 100; BMI 38.0
== END 2024-01-07 11:55 | disposition home or self-care (01) ==
PROVIDERS: PCP Internal Medicine; Visit Provider Physician Assistant Surgical
DX: E66.9 Obesity, unspecified (principal); Z68.38 Body mass index [BMI] 38.0-38.9, adult; Z90.3 Acquired absence of stomach [part of]; Z98.84 Bariatric surgery status
CPT/HCPCS: 99024

== ENCOUNTER → 2024-01-07 10:18 | Outpatient (BNVA) | payer OTHER, SELFPAY | PROVIDERS: PCP Internal Medicine; Visit Provider Physician Assistant Surgical ==

== ENCOUNTER 2024-01-21 08:40 | Outpatient (AMB) | payer OTHER, SELFPAY ==
--- NOTE | 2024-01-21 08:32 | MHC.AMNUTRGE ---
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 Wants to incorporate more food. explained the importance of using protein shakes as she is too soon post op to meet her nutritional needs without Pt states Dr. Ambrose just gave her a plan to start following today: 8-10am protein shake rebuild 1 scoop , 8oz almond milk 11am-1pm same shake 2-4pm protein bar 5pm scrambled egg, chinese yogurt, cottage cheese 7-9pm 2 scoops rebuild shake Hydration: 50-60oz per day , includes the shakes Vitamins: celebrate MVI , tolerates OK - takes in the AM with her shake . Talked about taking with food Exercise: walking at home on the treadmill or the stationary bike and weights Dietary counseling reduction Diagnosis Nutrition problem #1 overweight/obesity As related to (etiology) #1 excess energy intake and physical inactivity As evidenced by (sign/symptom) #1 high BMI Monitoring/Goals Nutrition problem monitoring total energy intake, level of knowledge/skill, total PRO intake, total CHO intake, weight and oral fluids Outcome progress progressing Learning/Education Readiness to learn good Stages of change action Most Recent Diabetes Results: Cholesterol 148 mg/dL (<200) 12/21/23 HDL Cholesterol 40 mg/dL (>40) L 12/21/23 Triglycerides 88 mg/dL (<150) 12/21/23 Creatinine 0.63 mg/dL (0.5-1.4) 01/01/24 Blood Urea Nitrogen 6 mg/dL (9-16) L 01/01/24 Sodium 135 mmol/L (135-145) 01/01/24 Potassium 4.1 mmol/L (3.3-5.1) 01/01/24 Chloride 109 mmol/L (96-108) H 01/01/24 Carbon Dioxide 14 mmol/L (22-29) L 01/01/24 Calcium 9.0 mg/dL (8.4-10.2) 01/01/24 AST 16 U/L (5-31) 12/21/23 ALT 21 U/L (0-31) 12/21/23 Total Protein 7.3 g/dL (6.5-8.0) 12/21/23 Albumin 4.3 g/dL (3.5-5.0) 12/21/23 PFSH Medical History (Updated 01/09/24 @ 00:02 by Background Charlotte) Hiatal hernia Factor 5 Leiden mutation, heterozygous Herpes simplex GERD (gastroesophageal reflux disease) Anxiety Depression Morbid obesity Surgical History (Updated 01/09/24 @ 00:02 by Background [place]) S/P laparoscopic sleeve gastrectomy Hx of hand surgery Hx of discectomy Hx of ovarian cystectomy Hx of wisdom tooth extraction Social History Household Members: Family Housing: House Are you a primary residential care facility manager to a significant other at home: No Do you presently have visiting nurse or other home services: No Alcohol intake: current Alcohol intake frequency: holidays/special occasions only Alcohol type: beer Patient Tobacco Use Status: Former Tobacco user Quit Date: 10 YRS AGO Substance Use Type: Marijuana service: No Assessment & Plan Assessment & Plan (1) Obesity (BMI 30-39.9): Code(s): E66.9 - Obesity, unspecified Plan Pt will continue to follow with Dr. Halie coopering diet advancement. Telehealth Telehealth Location of provider rendering services: practice address Location of patient: address on file Patient Identification confirmed using: Name, : Yes Telehealth method: video Patient verbally consented to treatment: Yes Patient verbally consented to billing insurance company: Yes Patient informed of any privacy concerns related to visit: Yes Minutes spent on Phone/Video with Pt.: 25 Coding Level of Care Code Nutr Indiv Subseq (38021) Diagnoses Obesity (BMI 30-39.9) E66.9 Time Spent (min) 25
[2024-01-21 08:54] VITALS: BMI 37.2
== END 2024-01-21 08:54 | disposition home or self-care (01) ==
LOC: HO.HBS 08:40
PROVIDERS: PCP Internal Medicine; Visit Provider Dietitian, Registered
DX: E66.9 Obesity, unspecified (principal)

== ENCOUNTER → 2024-01-21 08:40 | Outpatient (BNVA) | payer OTHER, SELFPAY | PROVIDERS: PCP Internal Medicine; Visit Provider Dietitian, Registered | DX: E66.9 Obesity, unspecified (principal); Z68.37 Body mass index [BMI] 37.0-37.9, adult; Z98.84 Bariatric surgery status; Z71.3 Dietary counseling and surveillance | CPT/HCPCS: 97803 ==

== ENCOUNTER 2024-01-31 10:53 | Outpatient (AMB) | payer OTHER, SELFPAY ==
--- NOTE | 2024-01-31 10:47 | MHC.AMNUTRGE ---
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 Ambrose and following his nutrition plan. She does not desire any changes. 8-10am protein shake rebuild 1 scoop , 8oz almond milk 11am-1pm same shake 2-4pm protein bar 5pm scrambled egg, uruguayan yogurt, cottage cheese 7-9pm 2 scoops rebuild shake Hydration: 50-60oz per day , includes the shakes Vitamins: celebrate MVI , tolerates OK Exercise: walking at home on the treadmill or the stationary bike and weights Dietary counseling reduction Diagnosis Nutrition problem #1 overweight/obesity As related to (etiology) #1 excess energy intake and physical inactivity As evidenced by (sign/symptom) #1 high BMI Monitoring/Goals Nutrition problem monitoring total energy intake, level of knowledge/skill, total PRO intake, total CHO intake, weight and oral fluids Outcome progress progressing Learning/Education Readiness to learn good Stages of change action Most Recent Diabetes Results: Cholesterol 148 mg/dL (<200) 12/21/23 HDL Cholesterol 40 mg/dL (>40) L 12/21/23 Triglycerides 88 mg/dL (<150) 12/21/23 Creatinine 0.63 mg/dL (0.5-1.4) 01/01/24 Blood Urea Nitrogen 6 mg/dL (9-16) L 01/01/24 Sodium 135 mmol/L (135-145) 01/01/24 Potassium 4.1 mmol/L (3.3-5.1) 01/01/24 Chloride 109 mmol/L (96-108) H 01/01/24 Carbon Dioxide 14 mmol/L (22-29) L 01/01/24 Calcium 9.0 mg/dL (8.4-10.2) 01/01/24 AST 16 U/L (5-31) 12/21/23 ALT 21 U/L (0-31) 12/21/23 Total Protein 7.3 g/dL (6.5-8.0) 12/21/23 Albumin 4.3 g/dL (3.5-5.0) 12/21/23 [facility] Medical History (Updated 01/09/24 @ 00:02 by Background Daemon) Hiatal hernia Factor 5 Leiden mutation, heterozygous Herpes simplex GERD (gastroesophageal reflux disease) Anxiety Depression Morbid obesity Surgical History (Updated 01/09/24 @ 00:02 by Background Dael[place]) S/P laparoscopic sleeve gastrectomy Hx of hand surgery Hx of discectomy Hx of ovarian cystectomy Hx of wisdom tooth extraction Social History Household Members: Family Housing: House Are you a primary spiritual care coordinator to a significant other at home: No Do you presently have visiting nurse or other home services: No Alcohol intake: current Alcohol intake frequency: holidays/special occasions only Alcohol type: beer Patient Tobacco Use Status: Former Tobacco user Quit Date: 10 YRS AGO Substance Use Type: Marijuana service: No Assessment & Plan Assessment & Plan (1) Obesity (BMI 30-39.9): Code(s): E66.9 - Obesity, unspecified Plan pt to continue to f/u with Dr. Ambrose, but encouraged communication as needed. Telehealth Telehealth Location of provider rendering services: other (home address [facility] ) Location of patient: address on file Patient Identification confirmed using: Name, : Yes Telehealth method: voice only Patient verbally consented to treatment: Yes Patient verbally consented to billing insurance company: Yes Patient informed of any privacy concerns related to visit: Yes Minutes spent on Phone/Video with Pt.: 15 Coding Level of Care Code Nutr Indiv Subseq (69215) Diagnoses Obesity (BMI 30-39.9) E66.9 Time Spent (min) 15
[2024-01-31 10:54] VITALS: BMI 36.7
== END 2024-01-31 10:56 | disposition home or self-care (01) ==
LOC: HO.HBS 10:53
PROVIDERS: PCP Internal Medicine; Visit Provider Dietitian, Registered
DX: E66.9 Obesity, unspecified (principal)

== ENCOUNTER → 2024-01-31 10:53 | Outpatient (BNVA) | payer OTHER, SELFPAY | PROVIDERS: PCP Internal Medicine; Visit Provider Dietitian, Registered | DX: E66.9 Obesity, unspecified (principal); Z68.36 Body mass index [BMI] 36.0-36.9, adult; Z98.84 Bariatric surgery status; Z71.3 Dietary counseling and surveillance | CPT/HCPCS: 97803 ==

== ENCOUNTER 2024-04-24 09:30 | Outpatient (AMB) | payer OTHER, SELFPAY ==
--- NOTE | 2024-04-24 09:32 | A.OFFVIS_ITS ---
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 Presents for 4 month post op visit. Weight today is 181.4 pounds, with a BMI of 31.1. There has been a 80.9 pound weight loss,(initial weight 262.3 pounds) since starting the program on 10/20/2023 reflecting a 30.8% total body weight loss and a weight loss of 55.3 pounds since surgery (operative weight 236.7 pounds) reflecting a 23.3% TBWL since surgery. No complaints of nausea, emesis, abdominal pain or reflux. Reports infrequent but normal bowel movements every 2- 3 days and uses stool softeners. She feels as though things are going well Present meal plan includes: isopure 1/2 scoop in 8 oz water 13 gm, 7-9am ZP bar 10-12 another shake, 1-3 ZP bar 4-6 pm meal 4 forks protein and 4 forks veg 7 pm 1/2 ZP bar 9-10 pm Drinking 30-40 oz water ? Exercise routine includes: treadmill, ellipitical 5 days per week, [address] [facility] Medical History Hiatal hernia Factor 5 Leiden mutation, heterozygous Herpes simplex GERD (gastroesophageal reflux disease) Anxiety Depression Morbid obesity Surgical History S/P laparoscopic sleeve gastrectomy Hx of hand surgery Hx of discectomy Hx of ovarian cystectomy Hx of wisdom tooth extraction Social History Household Members: Family Housing: House Are you a primary healthcare receptionist to a significant other at home: No Do you presently have visiting nurse or other home services: No Alcohol intake: current Alcohol intake frequency: holidays/special occasions only Alcohol type: beer Patient Tobacco Use Status: Former Tobacco user Quit Date: 10 YRS AGO Substance Use Type: Marijuana service: No Physical Exam Const General: healthy appearing and no acute distress Resp Effort & Inspection: normal respiratory effort Auscultation: clear to auscultation bilaterally Cardio Rate: regular rate Rhythm: regular rhythm GI Auscultation: normal bowel sounds Extrem General: Yes normal to inspection Assessment & Plan Assessment & Plan (1) S/P laparoscopic sleeve gastrectomy: Code(s): Z98.84 - Bariatric surgery status Category: Surgical Plan: Overall doing well. Change meal plan: isopure 1/2 scoop in 8 oz water 13 gm, 7-9am ZP bar 10-12 another shake, 1-3 ZP bar 4-6 pm meal 4 forks protein and 4 forks veg 7 pm Recommend increase exercise to 450-500 calories burn per session as she states she is sometimes unable to exercise 5 days per week. I have given her my cell phone number so that she may text weekly with her weight as well as with any questions or concerns.
[2024-04-24 09:41] VITALS: BP 110/60; PULSE 62; TEMP 36.8; O2SAT 96; BMI 31.1
== END 2024-04-24 10:09 | disposition home or self-care (01) ==
PROVIDERS: PCP Internal Medicine; Visit Provider Physician Assistant Surgical
DX: E66.9 Obesity, unspecified (principal); Z68.31 Body mass index [BMI] 31.0-31.9, adult; Z90.3 Acquired absence of stomach [part of]; Z98.84 Bariatric surgery status
CPT/HCPCS: 99213

== ENCOUNTER → 2024-04-24 09:30 | Outpatient (BNVA) | payer OTHER, SELFPAY | PROVIDERS: PCP Internal Medicine; Visit Provider Physician Assistant Surgical ==

== ENCOUNTER 2024-06-22 09:49 | Outpatient (AMB) | payer OTHER, SELFPAY ==
--- NOTE | 2024-06-22 09:51 | MHC.OFFVISWM ---
VS Expanded 06/22/24 10:03 BP 117/69 Blood Pressure Location Rt brachial Blood Pressure Position Sitting Pulse 89 Pulse Source Pulse Oximeter Temp 97.5 F Temperature Source Tympanic Pulse Oximetry 100 Oxygen Delivery Method Room Air Height 5 ft 4 in Weight 177 lb 9.6 oz BMI 30.5 Body Fat % 32.7 Body Fat Mass 119.4 Fat Free Mass 119.4 Visceral Fat Rating 5.0 Body Water % 48.2 Body Water Mass 85.6 Muscle Mass/Score 113.6 Basal Metabolic Rate/Score 1,634 Intake Visit Reasons: (OV) PO LSG 12/31/23 Allergies No Known Allergies Allergy (Verified 06/22/24 09:51) HPI Comments Details: This?a?33?yo female who is s/p LSG without hiatal hernia repair on?12/31/2023. Presents for 6 month post op visit. Weight today is 177.6 pounds, with a BMI of 30.5. There has been a 84.7 pound weight loss,(initial weight 262.3 pounds) since starting the program on 10/20/2023 reflecting a 32.2% total body weight loss and a weight loss of 59.1 pounds since surgery (operative weight 236.7 pounds) reflecting a 24.9% TBWL since surgery. No complaints of nausea, emesis, abdominal pain or reflux. Reports infrequent but normal bowel movements every 2-3 days and uses stool softeners. She feels as though things are going well. She states that she has been comfortable with her weight and has not been exercising as much. [place] as though she needed a time out with vacations and summertime. Taking bariatric one mvi. She states that she would like to lose another 10-15 lb as her goal. Additionally, she does not want to do this aggressively. reccomended meal plan includes: isopure 1/2 scoop in 8 oz water 13 gm, 7-9am ZP bar 10-12 another shake, 1-3 ZP bar 4-6 pm meal 4 forks protein and 4 forks veg 7 pm Drinking 30-40 oz water Her meal plan: Premier protein RTD mixed w coffee, 30 gm barebells protein bar 20 gm meal 4 forks protein and 4 forks veg another bar drinkin oz water daily ? Exercise routine includes: none in the last month gym at work when in office 3 x per week treadmill at home Any post op complications: none KRISTEN: never DM: never HTN: never Hyperlipidemia: never GERD:?0-5 scale ??0 = no symptoms ??1 = symptoms noticeable but not bothersome 2 =symptoms bothersome but not daily ? 3 = symptoms bothersome and daily 4 = symptoms affect daily activities 5 = symptoms are incapacitating, unable to do daily activities ? How bad is the heartburn: 0 ? Heartburn while lying down: 0 ? Heartburn when standing up: 0 ? Heartburn after meals: 0 ? Does heartburn change your diet: 0 ? Does heartburn wake you up from sleep: 0 ? Do you have difficulty swallowin ? Do you have pain with swallowin ? If you take medicine for your reflux, does this affect your daily life: 0 Satisfaction with present condition - satisfied or not satisfied: gabby [facility] Medical History Hiatal hernia Factor 5 Leiden mutation, heterozygous Herpes simplex GERD (gastroesophageal reflux disease) Anxiety Depression Morbid obesity Surgical History S/P laparoscopic sleeve gastrectomy Hx of hand surgery Hx of discectomy Hx of ovarian cystectomy Hx of wisdom tooth extraction Social History Household Members: Family Housing: House Are you a primary career guidance counselor to a significant other at home: No Do you presently have visiting nurse or other home services: No Alcohol intake: current Alcohol intake frequency: holidays/special occasions only Alcohol type: beer Patient Tobacco Use Status: Former Tobacco user Substance Use Type: Marijuana service: No Physical Exam Const General: cooperative and no acute distress Orientation/consciousness: patient oriented x3 Resp Effort & Inspection: normal respiratory effort Auscultation: clear to auscultation bilaterally Cardio Rate: regular rate Rhythm: regular rhythm GI Inspection: Yes normal to inspection and Yes incision (well healed) Palpation (GI): Soft to palpation and no masses Neuro General: patient oriented x3 Assessment & Plan Assessment & Plan (1) S/P laparoscopic sleeve gastrectomy: Code(s): Z98.84 - Bariatric surgery status Category: Surgical Plan: check 6 month post op labs recc remove after dinner bar and substitue 1/2 cup fresh berries recc resume exercise on home treadmill daily do weight lifting at gym at work 3 x per week. rtc 4-6 weeks Orders: Orders Complete Blood Count Auto Diff Today Z98.84 - Bariatric surgery status Comprehensive Met. Panel Today Z98.84 - Bariatric surgery status Vitamin B12 and Folate Today Z98.84 - Bariatric surgery status Vitamin B1 Today Z98.84 - Bariatric surgery status TSH reflex Free T4 Today Z98.84 - Bariatric surgery status Ferritin Today Z98.84 - Bariatric surgery status Vitamin D 25-OH Total Today Z98.84 - Bariatric surgery status Insulin Today Z98.84 - Bariatric surgery status Hemoglobin A1c Today Z98.84 - Bariatric surgery status Lipid Panel Today Z98.84 - Bariatric surgery status IRON PROFILE Today Z98.84 - Bariatric surgery status Zinc Today Z98.84 - Bariatric surgery status C Reactive Protein Today Z98.84 - Bariatric surgery status Vitamin A Today Z98.84 - Bariatric surgery status
[2024-06-22 10:03] VITALS: BP 117/69; PULSE 89; TEMP 36.4; O2SAT 100; BMI 30.5
== END 2024-06-22 10:22 | disposition home or self-care (01) ==
PROVIDERS: PCP Internal Medicine; Visit Provider Physician Assistant Surgical
DX: E66.9 Obesity, unspecified (principal); Z68.30 Body mass index [BMI] 30.0-30.9, adult; Z90.3 Acquired absence of stomach [part of]; Z98.84 Bariatric surgery status
CPT/HCPCS: 99213

== ENCOUNTER → 2024-06-22 09:49 | Outpatient (BNVA) | payer OTHER, SELFPAY | PROVIDERS: PCP Internal Medicine; Visit Provider Physician Assistant Surgical ==

== ENCOUNTER 2024-07-06 07:10 | Outpatient (REF) | payer OTHER, SELFPAY ==
[2024-07-06 07:23] LABS: MANUAL DIFF FLAG NO
[2024-07-06 07:38] LABS: Basophils Percent Auto 0.6 % (0-2); Eosinophils Absolute Auto 0.1 X10*3/uL (0.0-0.4); Eosinophils Percent Auto 1.9 % (0-4); Hematocrit 36.1 % (37.0-47.0); Imm Gran Abs Auto 0.01 X10*3/uL (0.00-0.03); Imm Gran Pct Auto 0.2 % (0.0-0.4); Lymphocytes Absolute Auto 1.9 X10*3/uL (1.2-4.9); Lymphocytes Percent Auto 36.7 % (20-40); Mean Corpuscular HGB Conc 33.2 g/dl (31.0-35.0); Mean Corpuscular Hemoglobin 30.8 pg (27.0-33.0); Mean Corpuscular Volume 92.8 fL (80.0-98.0); Monocytes Absolute Auto 0.4 X10*3/uL (0.1-1.2); Monocytes Percent Auto 7.6 % (2-11); Neutrophils Absolute Auto 2.8 x10*3/uL (2.0-8.3); Platelet Count 248 X10*3/uL (160-400); Red Blood Count 3.89 X10*6/uL (4.20-5.50); Red Cell Distribution Width 13.8 % (11.0-16.0); White Blood Count 5.3 X10*3/uL (4.8-10.8)
[2024-07-06 07:55] LABS: Estimated Average Glucose 94 mg/dL; Hemoglobin A1c % 4.9 % (<6.0)
[2024-07-06 08:12] LABS: Alanine Aminotransferase 17 U/L (0-31); Albumin Level 3.9 g/dL (3.5-5.0); Alkaline Phosphatase 65 U/L (39-117); Anion Gap 11 (12-20); Aspartate Amino Transferase 12 U/L (5-31); Bilirubin Total 1.1 mg/dL (0.0-1.0); Blood Urea Nitrogen 11 mg/dL (9-16); C Reactive Protein 0.19 mg/dL (< or = 0.50); Carbon Dioxide 25 mmol/L (22-29); Chloride 107 mmol/L (96-108); Cholesterol 180 mg/dL (<200); Estimated Glomerular Filt Rate > 60; Glucose Random 96 mg/dL (60-115); HDL Cholesterol 59 mg/dL (>40); Iron 79 mcg/dL (30-160); LDL Cholesterol Calculated 107 mg/dL (<100); Percent Iron Saturation 28 % (15-50); Potassium 4.1 mmol/L (3.3-5.1); Sodium 139 mmol/L (135-145); Total Iron Binding Capacity 285 mcg/dL (228-428); Total Protein 6.4 g/dL (6.5-8.0); Triglycerides 74 mg/dL (<150); Unsaturated Iron Binding 206 ug/dL
[2024-07-06 08:31] LABS: Ferritin 41 ng/mL (10-122); Insulin 7 uU/mL (2-29); TSH reflex Free T4 0.41 uIU/mL (0.32-4.0); Vitamin D 25-OH Total 62.6 ng/mL (>30)
[2024-07-06 08:37] LABS: Folate 11.5 ng/mL (> or = 4.0); Vitamin B12 490 pg/mL (200-900)
[2024-07-10 02:48] LABS: Zinc 72 mcg/dL (60-130)
[2024-07-11 19:59] LABS: Vitamin A 48 mcg/dL (38-98)
[2024-07-16 06:23] LABS: Vitamin B1 9 nmol/L (8-30)
== END 2024-07-06 07:11 | disposition home or self-care (01) ==
LOC: HO.LAB 07:10
PROVIDERS: PCP Internal Medicine; Visit Provider Physician Assistant Surgical
DX: Z98.84 Bariatric surgery status (principal); Z13.1 Encounter for screening for diabetes mellitus; Z13.89 Encounter for screening for other disorder
CPT/HCPCS: 36415; 80053; 80061; 82306; 82607; 82728; 82746; 83036; 83525; 83540; 84425; 84443; 84590; 84630; 85025; 86140

== ENCOUNTER 2024-09-24 10:31 | Outpatient (AMB) | payer OTHER, SELFPAY ==
[2024-09-24 08:28] VITALS: BMI 29.5
--- NOTE | 2024-09-24 08:28 | MHC.OFFVISWM ---
VS Expanded 09/24/24 08:28 Height 5 ft 4 in Weight 172 lb 2 oz BMI 29.5 Intake Visit Reasons: (TV) PO LSG 12/31/23 Allergies No Known Allergies Allergy (Verified 06/22/24 09:51) HPI Comments Details: This?a?33?yo female who is s/p LSG without hiatal hernia repair on?12/31/2023. Presents for 9 month post op visit. Weight today is 172.2 pounds, with a BMI of 29.5. There has been a 90.1 pound weight loss,(initial weight 262.3 pounds) since starting the program on 10/20/2023 reflecting a 34.3% total body weight loss and a weight loss of 64.5 pounds since surgery (operative weight 236.7 pounds) reflecting a 27.2% TBWL since surgery. No complaints of nausea, emesis, abdominal pain or reflux. Reports infrequent but normal bowel movements every 2-3 days and uses stool softeners. She feels as though things are going well. She states that she has been comfortable with her weight and has not been exercising as much. [place] as though she needed a time out with vacations and summertime. Taking bariatric one mvi. She states that she would like to lose another 10-15 lb as her goal. Additionally, she does not want to do this aggressively. Her meal plan: Premier protein RTD mixed w coffee, 30 gm barebells protein bar 20 gm meal 4 forks protein and 4 forks veg drinkin oz water daily ? Exercise routine includes: none in the last month due to sick w pna previously [place], treadmill at home [facility] Medical History Hiatal hernia Factor 5 Leiden mutation, heterozygous Herpes simplex GERD (gastroesophageal reflux disease) Anxiety Depression Morbid obesity Surgical History S/P laparoscopic sleeve gastrectomy Hx of hand surgery Hx of discectomy Hx of ovarian cystectomy Hx of wisdom tooth extraction Social History Household Members: Family Housing: House Are you a primary palliative care nurse practitioner to a significant other at home: No Do you presently have visiting nurse or other home services: No Alcohol intake: current Alcohol intake frequency: holidays/special occasions only Alcohol type: beer Patient Tobacco Use Status: Former Tobacco user Substance Use Type: Marijuana service: No Telehealth Telehealth Telehealth Platform: Telephone Location of provider rendering services: practice address Location of patient: address on file Patient Identification confirmed using: Name, : Yes Telehealth method: voice only Patient verbally consented to treatment: Yes Patient verbally consented to billing insurance company: Yes Patient informed of any privacy concerns related to visit: Yes Minutes spent on Phone/Video with Pt.: 10 Assessment & Plan Assessment & Plan (1) Overweight (BMI 25.0-29.9): Code(s): E66.3 - Overweight Category: Medical Plan: Making slow but steady progress. Encouraged to return to exercise, even if she starts slowly at 15 minutes per day to build up her strength and endurance given recent pneumonia. We will arrange for follow-up in the office. Discussed the importance of sending weights weekly and texting with any questions or concerns. Additionally, regarding her meal plan, recommend using 8 oz of ready to drink Premier protein in the morning instead of the full 12 oz container.
== END 2024-09-24 10:42 | disposition home or self-care (01) ==
LOC: HO.HBS 10:31
PROVIDERS: PCP Internal Medicine; Visit Provider Physician Assistant Surgical
DX: E66.3 Overweight (principal)
CPT/HCPCS: 99441

== ENCOUNTER → 2024-09-24 10:31 | Outpatient (BNVA) | payer OTHER, SELFPAY | PROVIDERS: PCP Internal Medicine; Visit Provider Physician Assistant Surgical ==

== ENCOUNTER 2024-11-02 10:00 | Outpatient (AMB) | payer OTHER, SELFPAY ==
[2024-11-02 08:48] VITALS: BMI 30.4
--- NOTE | 2024-11-02 08:48 | A.OFFVIS_ITS ---
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 Presents for 10 month post op visit. Weight today is 177.2 pounds, with a BMI of 30.4. There has been a 85.1 pound weight loss,(initial weight 262.3 pounds) since starting the program on 10/20/2023 reflecting a 32.4% total body weight loss and a weight loss of 59.5 pounds since surgery (operative weight 236.7 pounds) reflecting a 25.1% TBWL since surgery. No complaints of nausea, emesis, abdominal pain or reflux. Reports infrequent but normal bowel movements every 2- 3 days and uses stool softeners. She has been eating more and having ETOH beverages weekly. She is not following the meal plan everyday, eating more food. Taking bariatric one mvi. She states that she would like to lose another 10-15 lb as her goal. Additionally, she does not want to do this aggressively. Her meal plan: 8 oz Premier protein RTD mixed w coffee, 20 gm barebells protein bar 20 gm or lunch (not tracking portions) or both meal 4 forks protein and 4 forks veg drinkin oz water daily ? Exercise routine includes: walking on walking pad, minimally previously [place], treadmill at home [facility] Medical History Hiatal hernia Factor 5 Leiden mutation, heterozygous Herpes simplex GERD (gastroesophageal reflux disease) Anxiety Depression Morbid obesity Surgical History S/P laparoscopic sleeve gastrectomy Hx of hand surgery Hx of discectomy Hx of ovarian cystectomy Hx of wisdom tooth extraction Social History Household Members: Family Housing: House Are you a primary acute care assistant to a significant other at home: No Do you presently have visiting nurse or other home services: No Alcohol intake: current Alcohol intake frequency: holidays/special occasions only Alcohol type: beer Patient Tobacco Use Status: Former Tobacco user Substance Use Type: Marijuana service: No Physical Exam Vital Signs: BMI result Body Mass Index 30.4 Telehealth Telehealth Telehealth Platform: Telephone Location of provider rendering services: practice address Location of patient: address on file Patient Identification confirmed using: Name, : Yes Telehealth method: voice only Patient verbally consented to treatment: Yes Patient verbally consented to billing insurance company: Yes Patient informed of any privacy concerns related to visit: Yes Minutes spent on Phone/Video with Pt.: 15 Assessment & Plan Assessment & Plan (1) S/P laparoscopic sleeve gastrectomy: Code(s): Z98.84 - Bariatric surgery status Category: Medical Plan: Discussed the importance of adhering to the meal plan, not having both lunch and protein bar. Recommended removing alcoholic beverages. Recommended increasing exercise, certainly trying to find the time when both she and her partner at home so 1 May be able to watch her 5-year-old daughter while she exercises. Reminded of upcoming 1 year postop appointment in December. We will check labs at that time. Encouraged to text weekly her weight is and with any questions or concerns
== END 2024-11-02 14:23 | disposition home or self-care (01) ==
LOC: HO.HBS 12:00
PROVIDERS: PCP Internal Medicine; Visit Provider Physician Assistant Surgical
DX: E66.09 Other obesity due to excess calories (principal); E66.811 Obesity, class 1; Z68.30 Body mass index [BMI] 30.0-30.9, adult; Z98.84 Bariatric surgery status
CPT/HCPCS: 98967

== ENCOUNTER → 2024-11-02 10:00 | Outpatient (BNVA) | payer OTHER, SELFPAY | PROVIDERS: PCP Internal Medicine; Visit Provider Physician Assistant Surgical | DX: Z98.84 Bariatric surgery status (principal) ==